=== PATIENT | male | born 1975 | race Caucasian/White ===

== ENCOUNTER 2019-05-04 17:51 | Emergency (ER) | payer BC, SELFPAY ==
[2019-05-04 17:55] VITALS: BP 121/84; PULSE 98; RESP 18; TEMP 36.6; O2SAT 98; BMI 33.3
--- NOTE | 2019-05-04 17:58 | ED_ITS ---
Entered by Jessica Hare, acting as scribe for Juan Amaral DO HPI - Extremity Injury (Upper) General: Chief Complaint: Extremity Injury, Upper Stated Complaint: RIGHT HAND PAIN Time Seen by Provider: 05/04/19 17:57 Source: patient Mode of arrival: ambulatory Limitations: no limitations History of Present Illness: HPI narrative: 43 yo Male presents to ED with complaint of right hand pain. Pt states that he got upset and punched a wall. Pt reported to triage nurse that he got into an argument with his mother and punched a wall. complaint: injury to: right and hand Onset (ago): hour(s) Other injuries: none Handedness: right Place: home Severity scale (1-10): 8 Relieving factors: none Exacerbating factors: movement of extremity Context: direct blow Associated symptoms: Denies neck pain or weakness in extremities Review of Systems Const: Denies: fever, chills, body aches, fatigue, malaise or night sweats Eyes: Denies: change in vision or blurry vision ENMT: Denies: throat pain, oral sores/lesions, dental pain, nasal discharge or nasal congestion Card: Denies: chest pain, palpitations, irregular heart rhythm, edema, syncope, shortness of breath on exertion, shortness of breath when lying down or leg pain with exertion Resp: Denies: shortness of breath, productive cough, non-productive cough or wheezing GI: Denies: abdominal pain, nausea, vomiting, vomiting blood, coffee grounds in vomit, difficulty swallowing, heartburn/indigestion, diarrhea, constipation, cramping, blood in stool or black tarry stool : Denies: flank pain, difficulty urinating, painful urination, urinary frequency, urinary urgency, urinary incontinence or blood in urine Musc: Reports: extremity pain (right hand); Denies: neck pain, back pain, extremity swelling, joint pain or joint swelling Skin/Breast: Denies: rash, itching or redness Neuro: Denies: headache, numbness in extremities, weakness in extremities, changes in sensation, lack of coordination, difficulty walking, frequent falls, dizziness, vertigo or confusion Psych: Denies: anxiety, depression, loss of interest, visual hallucinations, auditory hallucinations, suicidal ideation or homicidal ideation Endo: Denies: excessive urination, excessive thirst, tired all the time or cold intolerance Kye/Lymph: Denies: easy bruising, easy bleeding, petechiae, enlarged lymph nodes or tender lymph nodes PFSH ED PFSH: Social History Alcohol intake: current Alcohol intake frequency: holidays/special occasions only Physical Exam Const: COMMON NORMALS: average body habitus, oriented x3 and alert GENERAL APPEARANCE: cooperative, comfortable, well kempt and well developed NUTRITIONAL APPEARANCE: obese ORIENTATION/CONSCIOUSNESS: Yes awake, Yes oriented to person and Yes oriented to place Eye: COMMON NORMALS: PERRL, EOMs intact bilaterally, conjunctivae normal and no scleral icterus CONJUNCTIVA: Yes conjunctivae normal PUPIL: Yes PERRL Lymph: LYMPHATIC: no lymphadenopathy noted Resp: COMMON NORMALS: normal respiratory effort, no retractions, no use of accessory muscles and clear to auscultation bilaterally AUSCULTATION: clear to auscultation bilaterally Cardio: COMMON NORMALS: regular rate and regular rhythm RATE: regular rate RHYTHM: regular rhythm HEART SOUNDS: no murmurs GI: COMMON NORMALS: normal to inspection, nondistended, normoactive bowel sounds, soft to palpation and no hepatosplenomegaly PALPATION: Yes soft and Yes no hepatosplenomegaly Extremity: COMMON NORMALS: no clubbing, cyanosis or edema, no calf tenderness and no pedal edema OTHER: Patient placed in an ulnar gutter splint extending to include third fourth and fifth fingers pain medication given follow-up with Ortho Neuro: COMMON NORMALS: oriented x3 SENSORIUM/ORIENTATION: Yes alert, Yes oriented to person and Yes oriented to place Psych: APPEARANCE: Yes well kempt Skin: COMMON NORMALS: no rashes or lesions noted and skin turgor normal GENERAL SKIN EXAM: no rashes or lesions noted and turgor normal Course Vital Signs: Vital signs: Vital Signs Temperature 97.8 F 05/04/19 17:55 Pulse Rate 86 05/04/19 20:43 Respiratory Rate 14 05/04/19 20:43 Blood Pressure 121/74 05/04/19 20:43 Pulse Oximetry 99 05/04/19 20:43 Discharge Plan Discharge Patient Disposition: Home, Self-Care Clinical Impression: Boxer's metacarpal fracture, neck, closed Condition: Stable Prescriptions: New hydrocodone-acetaminophen 5-325 mg tablet 1 tab PO Q6H PRN (Reason: pain) Qty: 20 RF: 0 No Action (DME) Fast Form cock up splint Qty: 1 RF: 0 lisinopril 10 mg tablet 10 mg PO BID Qty: 60 RF: 0 atorvastatin 20 mg tablet 20 mg PO DAILY Qty: 30 RF: 0 Discharge Orders: Discharge Order (Routine); Ordered 05/04/19 Ordered By: Juan Amaral Referrals: Lawrence Allen DO [Physician] - Discharge Diet: Usual diet Discharge Activity: Limit activity as instructed Activity Restrictions/Additional Instructions: Case management will call with an appointment for orthopedics. Leave the splint in place until you see them. 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
--- NOTE | 2019-05-04 18:45 | XRR_ITS ---
PROCEDURE INFORMATION: Exam: XR Right Hand Exam date and time: 05/04/2019 6:59 PM Age: 43 years old Clinical indication: Pain and injury or trauma; Injury history: Punched wall; Initial encounter; Blunt trauma (contusions or hematomas; Hand; Right; Injury date: 05/04/19; Additional info: Hand pain/trauma TECHNIQUE: Imaging protocol: XR Right hand. Views: Frontal, lateral, and oblique views. COMPARISON: MRI Hand w/o RIGHT* [id number] 03/12/2017 6:53 AM FINDINGS: Bones/joints: Normal. Soft tissues: Normal. XR/XR hand RT min 3V* [id number] IMPRESSION: No acute findings.
[2019-05-04] MEDS: HYDROcodone-acetaminophen 5-325 mg Tablet 1 TAB PO (20:27)
[2019-05-04 20:43] VITALS: BP 121/74; PULSE 86; RESP 14; O2SAT 99
--- NOTE | 2019-05-05 14:53 | DCPLANNER ---
healthcare advisory services manager had message to schedule a follow up appointment for patient with ortho. healthcare advisory services manager called ortho, spoke with Pat, gave clinic patients information. healthcare advisory services manager was told that patients information would be printed and reviewed. Clinic will call behavioral health case manager and patient with appointment information.
--- NOTE | 2019-05-09 08:43 | DCPLANNER ---
Patient had an appointment scheduled for with ortho, patient did attend the appointment.
== END 2019-05-04 20:46 | disposition home or self-care (01) ==
PROVIDERS: Emergency Provider Family Medicine; Family Provider Family Medicine; PCP Family Medicine
DX: S62.336A Displaced fracture of neck of fifth metacarpal bone, right hand, initial encounter for closed fracture (principal); E66.9 Obesity, unspecified; Z68.33 Body mass index [BMI] 33.0-33.9, adult; W22.01XA Walked into wall, initial encounter; Y92.009 Unspecified place in unspecified non-institutional (private) residence as the place of occurrence of the external cause
CPT/HCPCS: 12345; 29125; 73130; 99281; 99283

== ENCOUNTER 2019-05-05 16:22 | Outpatient (CLI) | payer BC, SELFPAY | END 2019-05-05 16:23 | disposition home or self-care (01) | LOC: SPT 16:23 | PROVIDERS: Family Provider Family Medicine; PCP Family Medicine; Visit Provider Specialist | DX: Z46.89 Encounter for fitting and adjustment of other specified devices (principal); S62.336D Displaced fracture of neck of fifth metacarpal bone, right hand, subsequent encounter for fracture with routine healing; X58.XXXD Exposure to other specified factors, subsequent encounter | CPT/HCPCS: L3984 ==

== ENCOUNTER → 2019-05-08 09:31 | Outpatient (BNVA) | payer BC, SELFPAY | PROVIDERS: Family Provider Family Medicine; PCP Family Medicine; Visit Provider Family Medicine | DX: R68.89 Other general symptoms and signs (principal); J06.9 Acute upper respiratory infection, unspecified | CPT/HCPCS: 87400 ==

== ENCOUNTER → 2019-05-19 08:51 | Outpatient (BNVA) | payer BC, SELFPAY | PROVIDERS: Family Provider Family Medicine; PCP Family Medicine; Visit Provider Specialist | DX: S62.306A Unspecified fracture of fifth metacarpal bone, right hand, initial encounter for closed fracture (principal); X58.XXXA Exposure to other specified factors, initial encounter | CPT/HCPCS: 73130 ==

== ENCOUNTER → 2019-06-02 11:47 | Outpatient (BNVA) | payer BC, SELFPAY | PROVIDERS: Family Provider Family Medicine; PCP Family Medicine; Visit Provider Specialist | DX: S62.306A Unspecified fracture of fifth metacarpal bone, right hand, initial encounter for closed fracture (principal); X58.XXXA Exposure to other specified factors, initial encounter | CPT/HCPCS: 73130 ==

== ENCOUNTER → 2019-06-19 08:20 | Outpatient (BNVA) | payer BC, SELFPAY | PROVIDERS: Family Provider Family Medicine; PCP Family Medicine; Visit Provider Specialist | DX: S62.306A Unspecified fracture of fifth metacarpal bone, right hand, initial encounter for closed fracture (principal); X58.XXXA Exposure to other specified factors, initial encounter | CPT/HCPCS: 73130 ==

== ENCOUNTER → 2019-06-27 14:03 | Outpatient (BNVA) | payer BC, SELFPAY | PROVIDERS: Family Provider Family Medicine; PCP Family Medicine; Visit Provider Family Medicine | DX: I10 Essential (primary) hypertension (principal); E78.5 Hyperlipidemia, unspecified; G47.10 Hypersomnia, unspecified | CPT/HCPCS: 80053; 80061; 82044; 84443; 85025 ==

== ENCOUNTER → 2019-07-18 09:20 | Outpatient (BNVA) | payer BC, SELFPAY | PROVIDERS: Family Provider Family Medicine; PCP Family Medicine; Visit Provider Family Medicine | DX: R68.82 Decreased libido (principal); I10 Essential (primary) hypertension | CPT/HCPCS: 80048; 84403 ==

== ENCOUNTER → 2019-08-14 16:13 | Outpatient (BNVA) | payer BC, SELFPAY | PROVIDERS: Family Provider Family Medicine; PCP Family Medicine; Visit Provider Family Medicine | DX: R60.9 Edema, unspecified (principal); I10 Essential (primary) hypertension; Z79.899 Other long term (current) drug therapy | CPT/HCPCS: 80048 ==

== ENCOUNTER 2019-09-17 12:46 | Outpatient (CLI) | payer BC, SELFPAY ==
--- NOTE | 2019-09-17 12:45 | USCV_ITS ---
Sravan Gipson Age: 44 Gender: M : 1975 Exam Date: 09/17/2019 12:43 Ordering Phys: Maris Cavazos DO Technologist: Annetta Huynh Exam Location: [facility] [place] Indication: OLGUIN, LEG EDEMA BP: / HR: 91 Rhythm: Sinus Technical Quality: Adequate MEASUREMENTS (Male / Female) Normal Values 2D ECHO LV Diastolic Diameter PLAX 4.4 cm 4.2 - 5.9 / 3.9 - 5.3 cm LV Systolic Diameter PLAX 3.0 cm LV Chamber Size 4.0 cm IVS Diastolic Thickness 1.6 cm 0.6 - 1.0 / 0.6 - 0.9 cm IVS Systolic Thickness 2.1 cm LVPW Diastolic Thickness 2.5 cm 0.6 - 1.0 / 0.6 - 0.9 cm LVPW Systolic Thickness 2.6 cm RV Chamber Size 3.7 cm LVOT Diameter 2.0 cm LV Ejection Fraction 2D Teich 59.1 % LV Ejection Fraction MOD 2C 55.9 % LV Ejection Fraction 2C AL 56.1 % LA Diameter 4.1 cm LA Width 3.3 cm LA Height 4.1 cm RA Width 3.2 cm RA Height 3.0 cm Aorta at Sinotubular Diameter 2.4 cm M-MODE LV Diastolic Diameter MM 5.8 cm 4.2 - 5.9 / 3.9 - 5.3 cm LV Systolic Diameter MM 4.2 cm LV Ejection Fraction MM Teich 51.9 % IVS Diastolic Thickness MM 1.0 cm 0.6 - 1.0 / 0.6 - 0.9 cm IVS Systolic Thickness MM 1.1 cm LVPW Diastolic Thickness MM 0.9 cm 0.6 - 1.0 / 0.6 - 0.9 cm LVPW Systolic Thickness MM 1.2 cm Aortic Annulus Diameter 3.6 cm LA Ao Ratio MM 1.1 MV E Point Septal Separation 0.8 cm DOPPLER AV Peak Velocity 141.0 cm/s LVOT Peak Velocity 101.0 cm/s AV Area Cont Eq vti 2.6 cm squared AV Area Cont Eq pk 2.4 cm squared MV Area PHT 3.7 cm squared Mitral E to A Ratio 0.9 MV E' Velocity 10.0 cm/s Mitral E to MV E' Ratio 6.8 Mitral E to LV E' Lateral Ratio 7.0 Mitral E to LV E' Septal Ratio 6.6 TR Peak Velocity 186.0 cm/s TR Peak Gradient 13.8 mmHg TV Peak E Velocity 52.0 cm/s Right Atrial Pressure 3.0 mmHg Pulmonary Artery Systolic Pressu 16.8 mmHg PV Peak Velocity 78.0 cm/s RV Acceleration Time 0.2 s RV Ejection Time 0.4 s RV AcT/ET 0.4 FINDINGS Left Ventricle Normal left ventricular size and systolic function, EF 59 %. No regional wall motion abnormalities. Grade I/IV diastolic dysfunction (abnormal relaxation filling pattern), normal to mildly elevated filling pressures. Right Ventricle Normal right ventricular size and systolic function. Right Atrium The right atrium is normal in size. Left Atrium The left atrium is normal in size. Mitral Valve No gross abnormalities noted Aortic Valve No gross abnormalities noted Tricuspid Valve No gross abnormalities noted Pulmonic Valve Pulmonic valve not well visualized. Pericardium No pericardial effusion. Aorta Normal ascending aorta dimension. CONCLUSIONS Normal left ventricular size and systolic function, EF 59 %. No regional wall motion abnormalities. Grade I/IV diastolic dysfunction (abnormal relaxation filling pattern), normal to mildly elevated filling pressures. No significant stenotic or regurgitant lesions Normal cardiac chamber sizes There is no pericardial effusion. There are no intracardiac masses. No previous study is available for comparison. Dr Bonny Ding MD FAC (Electronically Signed) Final Date: 17 September 2019 18:03 S
== END 2019-09-17 12:47 | disposition home or self-care (01) ==
LOC: RAD 12:48
PROVIDERS: PCP Family Medicine; Visit Provider Family Medicine
DX: R06.00 Dyspnea, unspecified (principal); R60.0 Localized edema; I51.81 Takotsubo syndrome
CPT/HCPCS: 93306

== ENCOUNTER 2019-10-02 08:49 | Outpatient (CLI) | payer BC, SELFPAY ==
[2019-10-02 09:05] VITALS: BMI 38.0
--- NOTE | 2019-10-02 09:06 | NMCV_ITS ---
NM [place] perf SPECT r/s* [id number] Sravan Gipson Age: 44 Gender: M : 1975 Exam Date: 10/02/2019 09:57 Ordering Phys: Maris Cavazos DO Technologist: DIEGO Pedraza Exam Location: [facility] Indications: DYSPNEA ON EXERTION; BENIGN ESSENTIAL HYPERTENSION STRESS TEST Please see separate stress test report in [facility] for full findings IMAGE PROTOCOL Rest/Stress 1 Exercise Day Radiopharmaceutical Dose (mCi) Administration Site Administered by Rest: Tc-99m 11.0 IV DIEGO Pedraza Sestamibi Stress:Tc-99m 32.7 IV DIEGO Caruso Sestamibi Rest: 02-Oct-2019 60 Discovery 630 Stress: 02-Oct-2019 30 Discovery 630 Radiopharmaceutical was injected at 85 % maximum heart rate. Images obtained in supine and prone position. SPECT RESULTS Technical Quality: Excellent Raw Data Analysis: Normal Image Corrections: No attenuation or motion correction applied Summed Stress Score: 1 Summed Rest Score: 8 Summed Difference Score: 0 PERFUSION FINDINGS Patchy areas of decreased tracer uptake were noted in the anterior wall and inferior wall regions. No significant reversibility was noted in these regions FUNCTIONAL RESULTS (calculated via Gated SPECT) Stress Image LV EF (%): 70 Stress EDV (mL):102 TID: 0.76 Stress ESV (mL):31 FUNCTIONAL FINDINGS: Segmental wall motion analysis revealing no gross wall motion normalities IMPRESSIONS 1. Myocardial perfusion imaging revealing patchy areas of persistent decreased tracer uptake in the anterior wall and inferior wall regions, most likely represent attenuation artifacts. 2. Normal LV ejection fraction of 70%. 3. LV wall motion analysis revealing no gross wall motion normalities. 4. Normal LV volume. No significant coronary ischemia, based on the above findings Dr Bonny Ding MD FACC (Electronically Signed) Final Date: 02 October 2019 12:45 S
--- NOTE | 2019-10-02 11:00 | ECG_ITS ---
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 Interpretive Statements NAME OF STUDY: EXERCISE SESTAMIBI STRESS TEST EXERCISE DATA: The patient was exercised by William protocol. Baseline heart rate was 81 beats per minute. Baseline blood pressure was 109/83 millimeters of mercury. Target heart rate was 176 beats per minute. Maximum heart rate achieved was 162, which was 92 % of the target heart rate. Maximum blood pressure was 160/85 millimeters of mercury. Total exercise time was 7 minutes 31 seconds. Maximum METs achieved was 10.2, maximum VO2 was 35.7. The reason for ending the test was maximum effort achieved. The patient complained of during the stress test, which then resolved at the end of the test. ELECTROCARDIOGRAM: BASELINE: Showed sinus rhythm, normal axis, no significant ST-T changes at the baseline noted. EXERCISE: At the peak exercise level, no significant ST-T changes suggestive of ischemia noted. RECOVERY: During the recovery period, heart rate dropped appropriately. No significant ST-T changes in the recovery suggestive of ischemia noted. CONCLUSION: 1. Exercise capacity good. 2. Heart rate response was appropriate. 3. Blood pressure response was hypertensive. 4. Symptoms not suggestive of ischemia. 5. Electrocardiogram portion of the stress test was not suggestive of ischemia. Electronically Signed On 10-15-2019 19:06:03 CDT by Karina Cristina M.D. [id number]
[2019-10-02 11:23] VITALS: BP 116/84; PULSE 98
== END 2019-10-02 08:50 | disposition home or self-care (01) ==
LOC: CDL 08:52
PROVIDERS: PCP Family Medicine; Visit Provider Family Medicine
DX: R06.00 Dyspnea, unspecified (principal); I10 Essential (primary) hypertension
CPT/HCPCS: 78452; 93017; A9500

== ENCOUNTER 2019-10-02 13:00 | Outpatient (CLI) | payer BC, SELFPAY | END 2019-10-02 13:01 | disposition home or self-care (01) | LOC: SLEEP 10-03 09:54 | PROVIDERS: PCP Family Medicine; Visit Provider Family Medicine | DX: G47.10 Hypersomnia, unspecified (principal) | CPT/HCPCS: G0399 ==

== ENCOUNTER 2019-10-28 10:33 | Observation (INO) | payer BC, SELFPAY ==
[2019-10-28] VITALS (14 sets, daily range): BP systolic 103–131; BP diastolic 58–93; PULSE 62–89; RESP 14–24; TEMP 36.4–37.1; O2SAT 93–98; BMI 38.0
--- NOTE | 2019-10-28 10:35 | ECG_ITS ---
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 Measurements Intervals [place] Rate: 89 P: 35 NM: 187 QRS: 78 QRSD: 101 T: 67 QT: 344 QTc: 419 Interpretive Statements SINUS RHYTHM Compared to ECG 09/08/2018 16:03:40 No significant changes Electronically Signed On 10-28-2019 14:26:00 CDT by Mily Gonzalez M.D. [id number] f
--- NOTE | 2019-10-28 10:35 | XR_ITS ---
WS: [id number] EXAM: AP CHEST: PORTABLE UPRIGHT DATE OF EXAM: 10/28/2019, 1053 hours COMPARISON: Chest x-ray from 09/08/2018 HISTORY: Patient is 44 years old with atraumatic chest pain rated 6 out of 10. FINDINGS: The cardiac silhouette is normal in size. The mediastinal contours are normal. The pulmonary vas cularity is normal. The lungs are clear of infiltrate. There is no effusion or pneumothorax. No ac brett bony abnormality is seen. XR/XR chest 1V portable [id number] IMPRESSION: No acute pulmonary disease.
--- NOTE | 2019-10-28 10:57 | CT_ITS ---
WS: [id number] CT CHEST ANGIOGRAPHY WITH REFORMATS HISTORY: chest pain/dyspnea TECHNIQUE: Contiguous axial images are obtained through the chest during arterial injection of intrav enous contrast. Images are reconstructed to evaluate the pulmonary arteries. MIP imaging also reviewe d. All CT scans at [facility] use at least one of these dose optimization techniques: aut omated exposure control; mA and/or kV adjustment per patient size (includes targeted exams where dose is matched to clinical indication); or iterative reconstruction. CONTRAST: Omnipaque 350; 95 mL IV. DLP: 945.61 mGy.cm COMPARISON: 09/08/2018 Adequate opacification of the pulmonary arteries. Centrally there is no pulmonary embolism. Opacifica tion becomes limited beyond the subsegmental branches. Normal size pulmonary artery. Normal aorta. Mi ld enlargement of the LEFT heart chambers. No pericardial or pleural effusion. Poor inspiration. No pneumonia. Subcentimeter mediastinal and hilar lymph nodes. Prior cholecystectomy. Nonobstructing 3 mm calcification LEFT renal pelvis. No osteoblastic or osteolytic bone disease. CT/CT angio chest PE protcl [id number] IMPRESSION: 1. No pulmonary embolism. 2. Mild LEFT heart enlargement. 3. No pneumonia. 4. Prior cholecystectomy. 5. Subcentimeter mediastinal and hilar lymph nodes.
[2019-10-28] MEDS: nitroglycerin 1 gm/inch oint Pkt 1 INCH TOPICAL (11:00)
[2019-10-28 11:09] LABS: INR 0.82 (0.8-1.2)
[2019-10-28 11:11] LABS: Partial Thromboplastin Time 20.7 SECONDS (23.9-36.7)
[2019-10-28 11:19] LABS: Alanine Aminotransferase 22 U/L (0-41); Albumin Level 3.9 g/dL (3.5-5.2); Alkaline Phosphatase 72 IU/L (40-130); Anion Gap 14.2 (5-19); Aspartate Amino Transferase 22 U/L (0-40); Blood Urea Nitrogen 9 mg/dL (6-20); Calcium 8.7 mg/dL (8.5-10.5); Carbon Dioxide 21 mmol/L (22-29); Chloride 102 mmol/L (98-107); Creatine Phosphokinase 159 U/L (39-308); Glomerular Filtration Rate 72.7 mL/min (90-130); Glucose 110 mg/dL (65-115); Osmolality Calculated 273 mOsm/kg (285-295); Potassium 4.2 mmol/L (3.5-5.1); Sodium 133 mmol/L (136-145); Total Bilirubin 0.4 mg/dL (0.15-1.2); Total Protein 6.9 g/dL (6.6-8.7); Troponin(5th) Baseline 7 ng/L (0-15)
[2019-10-28] MEDS: aspirin 81 mg Chew Tablet 324 MG PO (11:21)
[2019-10-28 11:47] LABS: Basophils # 0.1 10^3/uL (0.0-0.1); Basophils % 0.6 %; Eosinophils # 0.4 10^3/uL (0.0-0.8); Eosinophils % 3.8 %; Hematocrit 54.3 % (42.0-52.0); Hemoglobin 17.7 g/dL (11.7-16.6); Lymphocytes # 3.6 10^3/uL (0.8-4.8); Lymphocytes % 32.9 %; Mean Corpuscular HGB Conc 32.6 g/dL (30.0-36.0); Mean Corpuscular Hemoglobin 28.2 pg (28.0-34.0); Mean Corpuscular Volume 86.6 fL (80-94); Mean Platelet Volume 9.6 fL (7.4-10.4); Monocytes # 0.9 10^3/uL (0.2-0.9); Monocytes % 8.3 %; Neutrophils % 53.7 %; Nucleated Red Blood Cells % 0 %; Platelet Count 244 10^3/cmm (130-400); Red Blood Count 6.27 10^6/uL (4.1-5.3); Red Cell Distribution Width 12.9 % (12.1-15.1); White Blood Count 10.8 10^3/uL (4.0-10.0)
[2019-10-28] MEDS: iohexol 350 mg/mL 100 mL Btl IV (12:14)
--- NOTE | 2019-10-28 12:35 | ECG_ITS ---
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 Measurements Intervals [place] Rate: 70 P: 37 SC: 192 QRS: 56 QRSD: 97 T: 50 QT: 373 QTc: 402 Interpretive Statements SINUS RHYTHM Compared to ECG 10/28/2019 10:43:25 No significant changes Electronically Signed On 10-28-2019 14:56:45 CDT by Mily Gonzalez M.D. [id number]
--- NOTE | 2019-10-28 12:49 | W.ED.CHESTPA ---
HPI - Chest Pain General: Chief Complaint: Chest Pain Stated Complaint: CP Time Seen by Provider: 10/28/19 10:35 History of Present Illness: HPI narrative: 44-year-old male presents with severe chest pain that began at 2 PM yesterday he has had worsening pain with cough and deep inspiration making it worse he has been short of breath he has sudden onset yesterday around 2 PM he has had some leg edema as well. He is not previously had any history of DVTs or PEs. He had recently had a stress test which was negative. MD complaint: chest pain Onset (ago): day(s) (1) Timing of current episode: constant Prior episodes: No Onset: during rest Pain location: substernal Severity: severe Quality: tightness and sharp Relieving factors: nothing Exacerbating factors: nothing Associated symptoms: Reports diaphoresis, dyspnea, leg edema and other; Deny abdominal pain, fever(s), nausea, palpitations, sense of impending doom, syncope or vomiting Treatment prior to arrival: none Review of Systems Const: Reports: diaphoresis; Denies: fever(s) ENMT: Denies: throat pain, ear or mastoid pain, nasal discharge or nasal congestion Card: Denies: palpitations or syncope Resp: Reports: dyspnea GI: Denies: abdominal pain, nausea or vomiting : Denies: flank pain, dysuria, urinary frequency or urinary urgency Skin/Breast: Denies: rash or pruritus PFSH ED PFSH: Medical History Benign essential HTN Dyslipidemia Hyperlipidemia Family History Other CAD (coronary artery disease) Diabetes Social History Smoking and tobacco status: current every day smoker smokeless tobacco Smokeless tobacco user: chewing tobacco Alcohol intake: current Alcohol intake frequency: holidays/special occasions only Physical Exam Const: COMMON NORMALS: no acute distress GENERAL APPEARANCE: cooperative and comfortable ORIENTATION/CONSCIOUSNESS: Yes awake, Yes oriented to person, Yes oriented to place and Yes oriented to time HENMT: COMMON NORMALS: normocephalic, atraumatic and hearing grossly normal bilaterally HEAD & SCALP: normocephalic and atraumatic Eye: COMMON NORMALS: Equal, round and reactive pupils present, EOMs intact bilaterally, conjunctivae normal and no scleral icterus CONJUNCTIVA: Yes conjunctivae normal PUPIL: Yes Equal, round and reactive pupils present Neck/C-Spine: COMMON NORMALS: full ROM, no lymphadenopathy, supple and no JVD Lymph: LYMPHATIC: no lymphadenopathy noted and no lymphedema noted Resp: COMMON NORMALS: normal respiratory effort, No retractions, No use of accessory muscles and clear to auscultation bilaterally AUSCULTATION: clear to auscultation bilaterally Cardio: COMMON NORMALS: no JVD, regular rate, regular rhythm and No murmurs present (Cardio) RATE: regular rate RHYTHM: regular rhythm GI: COMMON NORMALS: Soft to palpation and No hepatosplenomegaly present AUSCULTATION: Yes normoactive bowel sounds PALPATION: Yes Soft to palpation, No Tenderness to palpation present (GI), No Guarding due to palpation present (GI) and Yes No hepatosplenomegaly present Extremity: COMMON NORMALS: normal to inspection, capillary refill normal, no clubbing, cyanosis or edema, no calf tenderness and no pedal edema Neuro: SENSORIUM/ORIENTATION: Yes oriented to person, Yes oriented to place and Yes oriented to time Skin: COMMON NORMALS: no rashes or lesions noted GENERAL SKIN EXAM: no rashes or lesions noted Course Vital Signs: Vital signs: Vital Signs Temperature 97.5 F L 10/29/19 03:48 Pulse Rate 84 10/29/19 03:48 Respiratory Rate 21 H 10/29/19 03:48 Blood Pressure 118/69 10/29/19 03:48 Pulse Oximetry 94 10/29/19 03:48 MDM - Chest Pain MDM Narrative: Medical decision making narrative: Will admit to observation to complete rule out. 's Rafiq asked that we complete the rule out as a observation he may then require a cardiology consultation does appear some of this may be more pleuritic. Discussed with the patient, also discussed Dr. Singh he will admit the patient. Lab Data: Labs: Lab Results 10/28/19 10/28/19 10/28/19 Range/Units 10:52 10:52 10:52 WBC Cancelled Corrected WBC Cancelled RBC Cancelled Hgb Cancelled Hct Cancelled MCV Cancelled MCH Cancelled MCHC Cancelled RDW Cancelled Plt Count Cancelled MPV Cancelled Gran % Cancelled Neut % (Auto) Cancelled Lymph % (Auto) Cancelled [place] % (Auto) Cancelled Eos % (Auto) Cancelled Baso % (Auto) Cancelled Neut # (Auto) Cancelled Lymph # (Auto) Cancelled [place] # (Auto) Cancelled Eos # (Auto) Cancelled Baso # (Auto) Cancelled Absolute Gran (aut o) Cancelled Nucleated RBC % (a uto) Cancelled Nucleated RBCs # Cancelled ESR (0-10) mm/hr PT 11.60 L (12.1-14.9) SECO NDS INR 0.82 (0.8-1.2) APTT 20.7 L (23.9-36.7) SECO NDS Sodium 133 L (136-145) mmol/L Potassium 4.2 (3.5-5.1) mmol/L Chloride 102 (98-107) mmol/L Carbon Dioxide 21 L (22-29) mmol/L Anion Gap 14.2 (5-19) BUN 9 (6-20) mg/dL Creatinine 1.1 (0.7-1.2) mg/dL GFR Calculation 72.7 L (90-130) mL/min Glucose 110 (65-115) mg/dL Calculated Osmolal ity 273 L (285-295) mOsm/k g Calcium 8.7 (8.5-10.5) mg/dL Total Bilirubin 0.4 (0.15-1.2) mg/dL AST 22 (0-40) U/L ALT 22 (0-41) U/L Alkaline Phosphata se 72 (40-130) IU/L Creatine Kinase 159 (39-308) U/L Troponin T Baselin e (0-15) ng/L Troponin T 120 Min [place] (0-15) ng/L Delta Troponin T (0-10) ABS# C-Reactive Protein (0.0-4.9) mg/L C-React Prot High Sens (0.0-0.3) mg/dL NT-Pro-B Natriuret Pep (0-125) pg/mL Total Protein 6.9 (6.6-8.7) g/dL Albumin 3.9 (3.5-5.2) g/dL Globulin 3.0 (1.3-4.6) g/dL 10/28/19 10/28/19 10/28/19 Range/Units 10:52 10:52 11:42 WBC 10.8 H Corrected WBC RBC 6.27 H Hgb 17.7 H Hct 54.3 H MCV 86.6 MCH 28.2 MCHC 32.6 RDW 12.9 Plt Count 244 MPV 9.6 Gran % Neut % (Auto) 53.7 Lymph % (Auto) 32.9 [place] % (Auto) 8.3 Eos % (Auto) 3.8 Baso % (Auto) 0.6 Neut # (Auto) 5.80 Lymph # (Auto) 3.6 [place] # (Auto) 0.9 Eos # (Auto) 0.4 Baso # (Auto) 0.1 Absolute Gran (aut o) Nucleated RBC % (a uto) 0 Nucleated RBCs # 0.0 ESR (0-10) mm/hr PT (12.1-14.9) SECO NDS INR (0.8-1.2) APTT (23.9-36.7) SECO NDS Sodium (136-145) mmol/L Potassium (3.5-5.1) mmol/L Chloride (98-107) mmol/L Carbon Dioxide (22-29) mmol/L Anion Gap (5-19) BUN (6-20) mg/dL Creatinine (0.7-1.2) mg/dL GFR Calculation (90-130) mL/min Glucose (65-115) mg/dL Calculated Osmolal ity (285-295) mOsm/k g Calcium (8.5-10.5) mg/dL Total Bilirubin (0.15-1.2) mg/dL AST (0-40) U/L ALT (0-41) U/L Alkaline Phosphata se (40-130) IU/L Creatine Kinase (39-308) U/L Troponin T Baselin e 7 (0-15) ng/L Troponin T 120 Min [place] (0-15) ng/L Delta Troponin T (0-10) ABS# C-Reactive Protein 4.7 (0.0-4.9) mg/L C-React Prot High Sens 0.410 H (0.0-0.3) mg/dL NT-Pro-B Natriuret Pep 10 (0-125) pg/mL Total Protein (6.6-8.7) g/dL Albumin (3.5-5.2) g/dL Globulin (1.3-4.6) g/dL 10/28/19 10/28/19 Range/Units 11:42 12:38 WBC Corrected WBC RBC Hgb Hct MCV MCH MCHC RDW Plt Count MPV Gran % Neut % (Auto) Lymph % (Auto) [place] % (Auto) Eos % (Auto) Baso % (Auto) Neut # (Auto) Lymph # (Auto) [place] # (Auto) Eos # (Auto) Baso # (Auto) Absolute Gran (aut o) Nucleated RBC % (a uto) Nucleated RBCs # ESR 5 (0-10) mm/hr PT (12.1-14.9) SECO NDS INR (0.8-1.2) APTT (23.9-36.7) SECO NDS Sodium (136-145) mmol/L Potassium (3.5-5.1) mmol/L Chloride (98-107) mmol/L Carbon Dioxide (22-29) mmol/L Anion Gap (5-19) BUN (6-20) mg/dL Creatinine (0.7-1.2) mg/dL GFR Calculation (90-130) mL/min Glucose (65-115) mg/dL Calculated Osmolal ity (285-295) mOsm/k g Calcium (8.5-10.5) mg/dL Total Bilirubin (0.15-1.2) mg/dL AST (0-40) U/L ALT (0-41) U/L Alkaline Phosphata se (40-130) IU/L Creatine Kinase (39-308) U/L Troponin T Baselin e (0-15) ng/L Troponin T 120 Min [place] 7.52 (0-15) ng/L Delta Troponin T 0.52 (0-10) ABS# C-Reactive Protein (0.0-4.9) mg/L C-React Prot High Sens (0.0-0.3) mg/dL NT-Pro-B Natriuret Pep (0-125) pg/mL Total Protein (6.6-8.7) g/dL Albumin (3.5-5.2) g/dL Globulin (1.3-4.6) g/dL Discharge Plan Discharge Patient Disposition: Admitted As Inpatient Admit Provider: Jeremy Singh Clinical Impression: Atypical chest pain, Hypertension, Sleep apnea, GERD (gastroesophageal reflux disease) Condition: Stable Interventions: ED Discharge Assessment Last Done: 10/28/19 13:58 ED Charges Last Done: 10/28/19 13:58 Discharge Date/Time: 10/28/19 14:02 Coding Level of Care Code ED Office Machine Servicer Apprentice for Chg Fwd Exam Comprehensive
[2019-10-28 13:05] LABS: Troponin 5 2HR 7.52 ng/L (0-15); Troponin 5 2HR Delta 0.52 ABS# (0-10)
[2019-10-28] MEDS: morphine 4 mg/mL SDV 1 mL IVP (13:24)
--- NOTE | 2019-10-28 14:11 | P.HP_ITS ---
Providers/Chief Complaint Admitting Physician: Jeremy Singh MD Primary Care Provider: Maris Cavazos DO Chief Complaint: CP History of Present Illness 44 yo man with PMHx of hypertension, leg swelling, tobacco chewer (20 years), quit smoking cigarettes; he presented for evaluation of chest pain. This episode of chest pain started yesterday afternoon around 2:30-3 pm while he was watching TV. Pain described at squeezing, retrosternal in location with mild SOB. This was graded 6/10 in intensity and is constant in nature with occasional radiation to his jaw. These episodes have been happening for last 4-6 months and unrelated to exertion. He describes pleuritic component to the pain (worsening with inspiration). He tried ibuprofen that did not help . He describes his pain different than his acid reflux pain. He had an angiogram about 10-15 years ago that was within normal limits. He had home sleep study that he does not know the results of. EKG today showed sinus r hythm, right axis deviation, possible inferior infarct, age indeterminate. He has had EGD before in 11/02/2017 that showed mild gastritis. He recently had exercise sestamibi MPI that showed attenuation artifact in inferior and anterior leads. LVEF=70%. TTE with normal LV size and function. Grade 1 DD. He works for [employer] Current symptoms: Reports dyspnea and dyspnea on exertion Associated symptoms: Reports chest pain and leg edema; Denies palpitations, dizziness, pre-syncope, syncope or cough Initial EKG : No acute myocardial insult, CT angios with contrast: Done in the ER: Has no PE and no signs suggestive of pneumonia. Initial Troponins: FLat ESR,CRP awaited Review of Systems General: Reports: 10 or more systems reviewed and unremarkable except in HPI and below Const: Denies: fever(s), chills, body aches, change in appetite or diaphoresis Card: Denies: palpitations, edema, swelling of feet/ankles, dyspnea on exertion, orthopnea or leg pain with exertion Resp: Denies: dyspnea, productive cough, wheezing or pain on inspiration GI: Denies: abdominal pain, nausea, vomiting, diarrhea or constipation : Denies: flank pain or difficulty urinating Musc: Denies: back pain, extremity pain or extremity swelling Neuro: Denies: headache(s), difficulty walking or confusion Medications/Allergies Home Medications Medication Instructions Recorded Confirmed Last Taken Type atorvastatin 20 mg tablet 20 mg PO DAILY #90 tab 07/10/19 10/28/19 10/28/19 Rx testosterone cypionate 200 mg/mL 200 mg IM .every 2 weeks #0 ml 07/28/19 0 10/28/19 Unknown Rx intramuscular oil bumetanide 0.5 mg tablet 0.5 mg PO DAILY #30 tab 09/25/19 10/28/19 10/28/19 Rx Allergy Medication 1 tab PO DAILY 10/28/19 10/28/19 Unknown History acetaminophen [Tylenol Extra 1,000 mg PO PRN 10/28/19 10/28/19 Unknown History Strength] ibuprofen 400 mg PO PRN 10/28/19 10/28/19 Unknown History lisinopril 10 mg PO BEDTIME 10/28/19 10/28/19 10/27/19 History Allergies Allergy/AdvReac Type Severity Reaction Status Date / Time No Known Allergies Allergy Verified 10/28/19 11:08 PFSH Acute PFSH: Medical History Benign essential HTN Dyslipidemia Hyperlipidemia Family History Other CAD (coronary artery disease) Diabetes Social History Smoking and tobacco status: current every day smoker smokeless tobacco Smokeless tobacco user: chewing tobacco Alcohol intake: current Alcohol intake frequency: holidays/special occasions only Vitals/I&O/Wt Last Vital Signs Temp 98.8 F 10/28/19 10:35 Pulse 74 10/28/19 13:58 Resp 16 10/28/19 13:58 BP 106/70 10/28/19 13:58 Pulse Ox 95 10/28/19 13:58 Weight last 48 hrs Weight 130.635 kg Physical Exam Const: COMMON NORMALS: patient oriented x3 HENMT: COMMON NORMALS: normocephalic, atraumatic, hearing grossly normal bilaterally and external ears normal HEAD & SCALP: normocephalic and a traumatic EXTERNAL EAR: Yes external ears normal Eye: COMMON NORMALS: no scleral icterus GENERAL EYE: appearance normal, both eyes and all related structures Chest: COMMONS NORMALS: normal inspection of the chest and normal palpation of entire chest wall CHEST: Yes Symmetrical chest wall rise Resp: COMMON NORMALS: normal respiratory effort, No retractions, No use of accessory muscles and clear to auscultation bilaterally EFFORT & INSPECTION: Yes symmetric chest movement AUSCULTATION: clear to auscultation bilaterally Cardio: COMMON NORMALS: regular rate, regular rhythm, S1 normal heart sound present, S2 normal heart sound present, No gallops present (Cardio), No murmurs present (Cardio), No rub (Cardio) and Peripheral pulses 2+ throughout RATE: regular rate RHYTHM: regular rhythm HEART SOUNDS: S1 normal heart sound present and S2 normal heart sound present PERIPHERAL PULSES: Peripheral pulses 2+ throughout GI: COMMON NORMALS: Normal to inspection, nondistended, normoactive bowel sounds present, Soft to palpation, non-tender, No hepatosplenomegaly present and no masses AUSCULTATION: Yes normoactive bowel sounds PALPATION: Yes Soft to palpation and Yes No hepatosplenomegaly present RECTAL EXAM: Yes deferred Extremity: COMMON NORMALS: no clubbing, cyanosis or edema and no pedal edema Neuro: COMMON NORMALS: patient oriented x3 Data : 10/28/19 11:42 10/28/19 10:52 CT Chest: I personally reviewed and interpreted this imaging study as follows: My impression: No evidence of pulmonary embolim . No evidence of pneumonia. Radiologist's impression: 1. No pulmonary embolism. 2. Mild LEFT heart enlargement. 3. No pneumonia. 4. Prior cholecystectomy. 5. Subcentimeter mediastinal and hilar lymph nodes. EKG 1: I personally reviewed and interpreted this EKG as follows: My Interpretation: No acute myocardial insult. Machine Tool Builder Interpretation: SINUS RHYTHM Compared to ECG 10/28/2019 10:43:25 No significant changes A&P Assessment and plan (1) GERD (gastroesophageal reflux disease): pain is mainly epigastric, initial cardiac work-up has been negative. Patient has obesity, he has sleep apnea. We will start him on PPI trial 40 mg IV every 12 hours daily for 4-6 weeks. He does not comes from an H. pylori endemic area. Hence will avoid doing H. pylori stool antigen testing. Status: Acute (2) Atypical chest pain: Pain characteristic is atypical, it is nonexertional, sharp, nonradiating. Prior cardiac work-up has been negative. We will continue to monitor him on telemetry. Status: Acute (3) Hypertension: Continue lisinopril 10 mg oral daily Status: Acute (4) Sleep apnea: Patient has a prior sleep study done. Will provide him with the report of it upon discharge. He will follow with his primary care as well as in sleep clinic as an outpatient. Status: Acute (5) Dyslipidemia: Continue atorvastatin 10 mg oral daily. Status: Acute (6) Lower extremity edema: Patient is on Bumex 0.5 mg oral daily for his bilateral lower extremity at home. Currently he has minimal pitting edema . We will continue with Bumex 0.5 mg oral daily. Status: Acute Additional A&P Information Imaging study: CT angios with contrast: 1. No pulmonary embolism. 2. Mild LEFT heart enlargement. 3. No pneumonia. 4. Prior cholecystectomy. 5. Subcentimeter mediastinal and hilar lymph nodes. DVT prophylaxsis: Lovenox 40 mg sub daily GI prophylaxis: On Protonix CODE STATUS: Full code Attestations Medical Necessity Statement*: Patient will need more than 2 nights of hospital stay for chest pain evaluation and work-up. Coding Level of Care Code Acute Joggle Press Operator for Chg Fwd Exam Comprehensive Diagnoses GERD (gastroesophageal reflux disease) K21.9 Atypical chest pain R07.89 Hypertension I10 Sleep apnea G47.30 Dyslipidemia E78.5 Lower extremity edema R60.0
[2019-10-28] MEDS: enoxaparin 40 mg/0.4 mL Syringe SUBCUT (14:50)
[2019-10-28] MEDS: oxyCODONE-APAP 5-325 mg Tablet 1 TAB PO ×2 (14:50→20:24)
[2019-10-28] MEDS: pantoprazole 40 mg SDV IVP (14:50)
[2019-10-28 15:20] LABS: Erythrocyte Sedimentation Rate 5 mm/hr (0-10)
[2019-10-28 15:28] LABS: C Reactive Protein 4.7 mg/L (0.0-4.9)
[2019-10-28 15:48] LABS: NT Pro B Type Natriuretic Pept 10 pg/mL (0-125)
--- NOTE | 2019-10-28 16:35 | ECG_ITS ---
[facility] Test Date: 2019-10-28 Pat Name: Sravan Gipson Department: Room: 104 Gender: Male Disabilities Services Officer: : 1975 Requested By: Juan Rasmussen Order Number: [id number] Ayo MD: Mily Gonzalez M.D. Measurements Intervals [place] Rate: 68 P: 40 FL: 194 QRS: 78 QRSD: 111 T: 58 QT: 393 QTc: 420 Interpretive Statements SINUS RHYTHM MODERATE INTRAVENTRICULAR CONDUCTION DELAY [110+ ms QRS DURATION] Compared to ECG 10/28/2019 12:34:30 Intraventricular conduction delay now present Electronically Signed On 10-28-2019 22:29:22 CDT by Mily Gonzalez M.D. [id number]
[2019-10-28] MEDS: atorvastatin 40 mg Tablet 20 MG PO (20:21)
--- NOTE | 2019-10-28 23:02 | PC.NURSE ---
Patient resting in bed watching TV at this time. Patient did report moderate chest pain earlier in the shift and all v/s are WNL and telemtry shows NSR. Administered PRN pain medication per orders, and patient stated that the pain medication helps ease the chest pain and makes it bearable . Patient was admitted to [facility] for complaint of chest pain.
[2019-10-29] VITALS (10 sets, daily range): BP systolic 109–130; BP diastolic 60–76; PULSE 72–84; RESP 17–28; TEMP 36.4–36.7; O2SAT 93–95
--- NOTE | 2019-10-29 00:22 | PC.NURSE ---
Patient resting quietly at this time, no complaints during 0000 v/s and rounds. Patient does experience small episodes of apnea where o2 sats decrease then come right back up to WNL. Continue care.
[2019-10-29] MEDS: pantoprazole 40 mg SDV IVP (02:01)
[2019-10-29] MEDS: oxyCODONE-APAP 5-325 mg Tablet 1 TAB PO ×3 (02:01→13:24)
--- NOTE | 2019-10-29 02:31 | PC.NURSE ---
Patient awake during hourly rounding, nurse administered scheduled medication and patient reported pain and PRN pain medication given per orders for pain. Patient very pleasant and cooperative with staff. Continue care.
[2019-10-29 04:25] LABS: Basophils # 0.1 10^3/uL (0.0-0.1); Basophils % 0.5 %; Eosinophils # 0.4 10^3/uL (0.0-0.8); Hematocrit 50.1 % (42.0-52.0); Hemoglobin 16.2 g/dL (11.7-16.6); Lymphocytes # 2.8 10^3/uL (0.8-4.8); Lymphocytes % 22.2 %; Mean Corpuscular HGB Conc 32.3 g/dL (30.0-36.0); Mean Corpuscular Hemoglobin 28.3 pg (28.0-34.0); Mean Corpuscular Volume 87.6 fL (80-94); Mean Platelet Volume 9.7 fL (7.4-10.4); Monocytes # 0.9 10^3/uL (0.2-0.9); Monocytes % 6.7 %; Neutrophils # 8.52 10^3/uL (1.8-7.7); Neutrophils % 67.2 %; Nucleated Red Blood Cells % 0 %; Platelet Count 222 10^3/cmm (130-400); Red Blood Count 5.72 10^6/uL (4.1-5.3); Red Cell Distribution Width 13.1 % (12.1-15.1); White Blood Count 12.7 10^3/uL (4.0-10.0)
[2019-10-29 04:51] LABS: Magnesium 2.1 mg/dL (1.7-2.3)
[2019-10-29 04:53] LABS: Alanine Aminotransferase 53 U/L (0-41); Albumin Level 3.3 g/dL (3.5-5.2); Alkaline Phosphatase 75 IU/L (40-130); Anion Gap 14.9 (5-19); Aspartate Amino Transferase 35 U/L (0-40); Blood Urea Nitrogen 14 mg/dL (6-20); Calcium 8.6 mg/dL (8.5-10.5); Carbon Dioxide 22 mmol/L (22-29); Chloride 104 mmol/L (98-107); Globulin 2.7 g/dL (1.3-4.6); Glomerular Filtration Rate 65.8 mL/min (90-130); Glucose 112 mg/dL (65-115); Osmolality Calculated 281 mOsm/kg (285-295); Potassium 3.9 mmol/L (3.5-5.1); Sodium 137 mmol/L (136-145); Total Bilirubin 0.4 mg/dL (0.15-1.2)
--- NOTE | 2019-10-29 06:12 | PC.NURSE ---
Uneventful shift, patient resting quietly in room with lights off. Continue care.
[2019-10-29] MEDS: bumetanide 1 mg Tablet 0.5 MG PO (08:34)
[2019-10-29] MEDS: lisinopril 20 mg Tablet PO (08:34)
[2019-10-29] MEDS: aspirin 81 mg Chew Tablet PO (08:35)
--- NOTE | 2019-10-29 12:31 | P.CONIM_ITS ---
Providers/Reason For Consult Consulting Physican/Specialty*: BALA Ding MD/cardiology Reason for Consult*: Patient with chest pain Attending Physician: Stew Velasco MD Primary Care Provider: Maris Cavazos DO History of Present Illness History of Present Illness Sravan Gipson is a 44 year old male with a history of hypertension/dyslipidemia is admitted to hospital with complaints of chest pain. Cardiology consult is requested for further cardiac evaluation recommendations. According the patient, for the last 2 days, he has been constant pain in the lower sternal region. The pain gets worse with deep inspiration. The pain came on itself with no definite precipitating factors. No chest wall trauma or any type of unusual stress. The intensity of the pain is 5-6 over 10. He has no associated fever, chills or cough. Has some baseline shortness of breath with no recent worsening. No abdominal pain or dysuria. Patient has been having some atypical chest pains and shortness of breath for the last year or so. He had a myocardial perfusion imaging and echocardiogram as an outpatient which were essentially unremarkable. 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 Gonzalez yesterday in the office. Because of his persistent chest pain, he was sent to the emergency room, for further evaluation. He denies any other specific complaints. No history for any rheumatological disorders. He had a sed rate yesterday which was unremarkable. Review of Systems Narrative: CONSTITUTIONAL: No fever or chills. EYES: No blurring of vision or other visual disturbances lately. ENT: No hoarseness of voice, auditory disturbances or sore throat. CARDIOVASCULAR: As mentioned above. RESPIRATORY: No significant cough. GASTROINTESTINAL: No hematemesis or melena. GENITOURINARY: No dysuria or hematuria. INTEGUMENTARY: No skin rashes or history of skin cancer. NEURO: No transient ischemic attacks or amaurosis. PSYCHIATRIC: No history of psychosis or major depression. HEMATOLOGIC: No bleeding disorders or significant anemia. ENDOCRINE: No history of polyuria or polydipsia. MUSCULOSKELETAL: No recent joint pain or swelling. ALLERGY/IMMUNOLOGY: As mentioned above. Meds/Allergies Home Medications and Allergies Home Medications Medication Instructions Recorded Confirmed Last Taken Type atorvastatin 20 mg tablet 20 mg PO DAILY #90 tab 07/10/19 10/28/19 10/28/19 Rx testosterone cypionate 200 mg/mL 200 mg IM .every 2 weeks #0 ml 07/28/19 10/28/19 Unknown Rx intramuscular oil bumetanide 0.5 mg tablet 0.5 mg PO DAILY #30 tab 09/25/19 10/28/19 10/28/19 Rx Allergy Medication 1 tab PO DAILY 10/28/19 10/28/19 Unknown History acetaminophen [Tylenol Extra 1,000 mg PO PRN 10/28/19 10/28/19 Unknown History Strength] ibuprofen 400 mg PO PRN 10/28/19 10/28/19 Unknown History lisinopril 10 mg PO BEDTIME 10/28/19 10/28/19 10/27/19 History Allergies Allergy/AdvReac Type Severity Reaction Status Date / Time No Known Allergies Allergy Verified 10/28/19 11:08 Current Medications Current Medications Generic Name Dose Route Start Last Admin Trade Name Freq PRN Reason Stop Dose Admin Aspirin 81 mg 10/29/19 09:00 10/29/19 08:35 Aspirin Chewable PO 81 mg DAILY NORBERT Administration Atorvastatin Calcium 20 mg 10/28/19 21:00 10/28/19 20:21 Lipitor PO 20 mg BEDTIME NORBERT Administration Bumetanide 0.5 mg 10/29/19 09:00 10/29/19 08:34 Bumex PO 0.5 mg DAILY NORBERT Administration Enoxaparin Sodium 40 mg 10/28/19 14:30 10/28/19 14:50 Lovenox SUBCUT 40 mg Q24H NORBERT Administration Lisinopril 20 mg 10/29/19 09:00 10/29/19 08:34 Prinivil PO 20 mg DAILY NORBERT Administration Oxycodone/Acetaminophen 1 tab 10/28/19 13:59 10/29/19 07:33 Percocet 5-325 Mg PO 1 tab Q4H PRN Administration SEVERE PAIN Pantoprazole Sodium 40 mg 10/28/19 14:15 10/29/19 02:01 Protonix IVP 40 mg Q12H NORBERT Administration PFSH Acute PFSH: Medical History (Updated 10/29/19 @ 15:58 by Bonny Ding MD) Benign essential HTN Benign essential hypertension with target blood pressure below 140/90 Dyslipidemia Hyperlipidemia Family History Other CAD (coronary artery disease) Diabetes Social History Smoking and tobacco status: current every day smoker smokeless tobacco Smokeless tobacco user: chewing tobacco Alcohol intake: current Alcohol intake frequency: holidays/special occasions only Vitals/I&O/Wt Last Vital Signs Temp 98.1 F 10/29/19 11:08 Pulse 80 10/29/19 11:08 Resp 21 H 10/29/19 11:08 BP 128/76 10/29/19 11:08 Pulse Ox 93 10/29/19 11:08 10/28/19 10/29/19 10/29/19 22:59 06:59 14:59 Intake Total 480 / 480 120 / 600 Balance 480 / 480 120 / 600 Weight last 48 hrs Weight 288 lb Physical Exam Narrative: EXAM NARRATIVE: GENERAL: The patient is alert and oriented times three. Not in any acute distress. Moderately obese HEENT: No significant pallor, icterus or lymphadenopathy. The pupils are reactant to light. Oral cavity: There are no mucous membrane lesions. Funduscopic fundus is not visualized NECK: Trachea appears to be central. No masses noted. No JVD or thyromegaly appreciated. No carotid bruit. [] RESPIRATORY: Chest is symmetrical. No intercostals muscle retraction or any accessory muscle activation. There is no chest wall tenderness. Breath sounds are heard bilaterally. No rales or rhonchi heard. No evidence of any consolidation. BREASTS: Deferred. HEART: The PMI is in the 5th left intercostals space just inside the midclavicular line. No palpable precordial events. S1 and S2 are normal. No S3 or S4 heard. No pericardial rub or any click heard. ABDOMEN: No vessel pulsations or distention. No tenderness. No organomegaly appreciated. No abdominal bruit. Bowel sounds are normally heard. : Deferred. RECTAL: Deferred. LYMPHATIC: No lymphadenopathy noted in the neck or groin. EXTREMITIES: No edema or cyanosis. No clubbing. The pulses are symmetrical bilaterally. The radial, femoral, dorsalis pedis and the posterior tibial pulses are palpated and found to be in good volume and amplitude. MUSCULOSKELETAL: No acute joint deformities or swelling SKIN: There are no significant scars or skin rash noted. NEUROPSYCHIATRIC: The patient is alert and oriented x3. Appears to be in a good mood. The higher functions are grossly within normal limits. No tremors or rigidity noted. Data Labs: Other Labs: Laboratory Last Values WBC 12.7 10^3/uL (4.0 -10.0) H 10/29/19 03:33 Corrected WBC Cancelled 10/28/19 10:52 RBC 5.72 10^6/uL (4.1 -5.3) H 10/29/19 03:33 Hgb 16.2 g/dL (11.7-1 6.6) 10/29/19 03:33 Hct 50.1 % (42.0-52.0 ) 10/29/19 03:33 MCV 87.6 fL (80-94) 10/29/19 03:33 MCH 28.3 pg (28.0-34. 0) 10/29/19 03:33 MCHC 32.3 g/dL (30.0-3 6.0) 10/29/19 03:33 RDW 13.1 % (12.1-15.1 ) 10/29/19 03:33 Plt Count 222 10^3/cmm (130 -400) 10/29/19 03:33 MPV 9.7 fL (7.4-10.4) 10/29/19 03:33 Gran % Cancelled 10/28/19 10:52 Neut % (Auto) 67.2 % 10/29/19 03:33 Lymph % (Auto) 22.2 % 10/29/19 03:33 [place] % (Auto) 6.7 % 10/29/19 03:33 Eos % (Auto) 3.0 % 10/29/19 03:33 Baso % (Auto) 0.5 % 10/29/19 03:33 Neut # (Auto) 8.52 10^3/uL (1.8 -7.7) H 10/29/19 03:33 Lymph # (Auto) 2.8 10^3/uL (0.8- 4.8) 10/29/19 03:33 [place] # (Auto) 0.9 10^3/uL (0.2- 0.9) 10/29/19 03:33 Eos # (Auto) 0.4 10^3/uL (0.0- 0.8) 10/29/19 03:33 Baso # (Auto) 0.1 10^3/uL (0.0- 0.1) 10/29/19 03:33 Absolute Gran (aut o) Cancelled 10/28/19 10:52 Nucleated RBC % (a uto) 0 % 10/29/19 03:33 Nucleated RBCs # 0.0 /100WBC 10/29/19 03:33 ESR 5 mm/hr (0-10) 10/28/19 11:42 PT 11.60 SECONDS (12 .1-14.9) L 10/28/19 10:52 INR 0.82 (0.8-1.2) 10/28/19 10:52 APTT 20.7 SECONDS (23. 9-36.7) L 10/28/19 10:52 Sodium 137 mmol/L (136-1 45) 10/29/19 03:33 Potassium 3.9 mmol/L (3.5-5 .1) 10/29/19 03:33 Chloride 104 mmol/L (98-10 7) 10/29/19 03:33 Carbon Dioxide 22 mmol/L (22-29) 10/29/19 03:33 Anion Gap 14.9 (5-19) 10/29/19 03:33 BUN 14 mg/dL (6-20) 10/29/19 03:33 Creatinine 1.2 mg/dL (0.7-1. 2) 10/29/19 03:33 GFR Calculation 65.8 mL/min (90-1 30) L 10/29/19 03:33 Glucose 112 mg/dL (65-115 ) 10/29/19 03:33 Calculated Osmolal ity 281 mOsm/kg (285- 295) L 10/29/19 03:33 Calcium 8.6 mg/dL (8.5-10 .5) 10/29/19 03:33 Magnesium 2.1 mg/dL (1.7-2. 3) 10/29/19 03:33 Total Bilirubin 0.4 mg/dL (0.15-1 .2) 10/29/19 03:33 AST 35 U/L (0-40) 10/29/19 03:33 ALT 53 U/L (0-41) H 10/29/19 03:33 Alkaline Phosphata se 75 IU/L (40-130) 10/29/19 03:33 Creatine Kinase 159 U/L (39-308) 10/28/19 10:52 Troponin T Baselin e 7 ng/L (0-15) 10/28/19 10:52 Troponin T 120 Min brett 7.52 ng/L (0-15) 10/28/19 12:38 Delta Troponin T 0.52 ABS# (0-10) 10/28/19 12:38 Troponin T Hi Sens 6Hr 7.50 ng/L (0-15) 10/28/19 17:38 Troponin T Hi Sens 6Hr Delta 0.50 ng/L (0-12) 10/28/19 17:38 C-Reactive Protein 4.7 mg/L (0.0-4.9 ) 10/28/19 10:52 C-React Prot High Sens 0.410 mg/dL (0.0- 0.3) H 10/28/19 10:52 NT-Pro-B Natriuret Pep 10 pg/mL (0-125) 10/28/19 10:52 Total Protein 6.0 g/dL (6.6-8.7 ) L 10/29/19 03:33 Albumin 3.3 g/dL (3.5-5.2 ) L 10/29/19 03:33 Globulin 2.7 g/dL (1.3-4.6 ) 10/29/19 03:33 Imaging^: Myocardial perfusion imaging: My impression: Done on 10/02/2019 1. Myocardial perfusion imaging revealing patchy areas of persistent decreased tracer uptake in the anterior wall and inferior wall regions, most likely represent attenuation artifacts. 2. Normal LV ejection fraction of 70%. 3. LV wall motion analysis revealing no gross wall motion normalities. 4. Normal LV volume. Echo: My impression: 09/17/2019 Normal left ventricular size and systolic function, EF 59 %. No regional wall motion abnormalities. Grade I/IV diastolic dysfunction (abnormal relaxation filling pattern), normal to mildly elevated filling pressures. No significant stenotic or regurgitant lesions Normal cardiac chamber sizes There is no pericardial effusion. There are no intracardiac masses. No previous study is available for comparison. CTA Chest: Radiologist's impression: No pulmonary embolism. 2. Mild LEFT heart enlargement. 3. No pneumonia. 4. Prior cholecystectomy. 5. Subcentimeter mediastinal and hilar lymph nodes. EKG^: EKG 1: My Interpretation: The EKG showed normal sinus rhythm with nonspecific interventricular conduction delay. Otherwise unremarkable A&P Assessment and plan (1) Atypical chest pain: Discussed with the patient, implications of all the test findings. Patient has an unremarkable myocardial perfusion imaging, echocardiogram and CTA. No evidence of myocardial injury. Most likely the pain is musculoskeletal in origin. He has a pleuritic component for the pain. He may be tried on some anti-inflammatory medications. I discussed with the patient about the limitations of the noninvasive test. The chances of him having significant coronary artery disease is less than 10%. The patient understood this well and is not wanting to undergo any further cardiac tests at this point. Status: Acute (2) Benign essential hypertension with target blood pressure below 140/90: Currently he is normotensive. Advised to continue the current med ications. Status: Acute (3) Dyslipidemia: May continue on the current medications. Status: Acute Additional A&P Information If the patient continues to remain stable, may be discharged home from a cardiac standpoint. He may see Dr. Gonzalez, his stock crane operator as an outpatient in a month. 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
--- NOTE | 2019-10-29 13:13 | PM.PN ---
Subjective Subjective: Interval history: History and physical reviewed. Patient still complaining of some chest discomfort, which she reports has not really completely abated since admission. Medications: Reviewed: Yes Vitals/I&O/Wt Last Vital Signs Temp 98.1 F 10/29/19 11:08 Pulse 80 10/29/19 11:08 Resp 21 H 10/29/19 11:08 BP 128/76 10/29/19 11:08 Pulse Ox 93 10/29/19 11:08 10/28/19 10/29/19 10/29/19 22:59 06:59 14:59 Intake Total 480 / 480 120 / 600 Balance 480 / 480 120 / 600 Weight last 48 hrs Weight 130.635 kg Physical Exam Narrative: EXAM NARRATIVE: General exam is no apparent distress Cardiovascular regular rate and rhythm without murmur Lungs clear Abdomen is soft with positive bowel sounds. No obvious organomegaly Extremities no cyanosis clubbing or edema Data : 10/29/19 03:33 10/29/19 03:33 A&P Assessment and plan (1) Atypical chest pain: Recent nuclear stress test negative. However, patient continues to have chest discomfort. Echocardiogram also done and no significant abnormalities. Troponins negative Cardiology consultation Continue telemetry Morphine as needed for pain control CTA demonstrated no pulmonary embolism TSH in June was normal Status: Acute (2) GERD (gastroesophageal reflux disease): Continue Protonix 40 mg twice daily. Change to p.o. Status: Acute (3) Hypertension: Continue patient's home medications Status: Acute (4) Sleep apnea: Will need to follow-up with his primary care provider as a follow-up for further evaluation of this. Status: Acute (5) Dyslipidemia: Continue statin Status: Acute (6) Lower extremity edema: History of lower extremity edema. Continue Bumex. No significant edema present today Status: Acute Additional A&P Information Lovenox for DVT prophylaxis Full code Attestations Medical Necessity Statement*: Needs continued hospitalization, for further evaluation of persistent chest discomfort. Coding Level of Care Code Acute Finance Effectiveness Manager for Chg Fwd Diagnoses Atypical chest pain R07.89 GERD (gastroesophageal reflux disease) K21.9 Hypertension I10 Sleep apnea G47.30 Dyslipidemia E78.5 Lower extremity edema R60.0
--- NOTE | 2019-10-29 14:14 | PC.RESP ---
Smoking Cessation information sent to patient.
[2019-10-29] MEDS: enoxaparin 40 mg/0.4 mL Syringe SUBCUT (15:38)
[2019-10-29] MEDS: ketorolac 30 mg/mL INJ IVP (17:15)
--- NOTE | 2019-10-29 18:10 | PM.DCS ---
Discharge Providers Date of Admission: 10/28/19 13:17 Date of Discharge: October 29, 2019 Attending Provider at Admission: Jeremy Singh MD Attending Provider at Discharge: Stew Velasco MD Primary Care Provider: Maris Cavazos DO Diagnoses at Discharge Discharge Diagnosis (1) Atypical chest pain: Status: Acute Problem details: Improved significantly with Toradol injection (2) Benign essential hypertension with target blood pressure below 140/90: Status: Acute (3) Dyslipidemia: Status: Acute Reason for Visit Reason for Visit: CP Hospital Course Hospital Course: Sravan is a 44-year-old white male who presented to the emergency department via cardiology clinic with complaints of chest discomfort, substernal, lower portion of sternum. He reported it was worse when he took a deep breath and it was alleviated with laying down. He denied a recent echocardiogram demonstrating normal EF and a recent nuclear stress test that was essentially negative. Troponins normal. Telemetry normal. EKG nonischemic. CTA performed no pulmonary embolism. Cardiology was consulted and after discussion with the patient did not believe angiogram was indicated. I gave 1 dose of Toradol to the patient with significant improvement in pain to near complete resolution. He was discharged home, with follow-up with his primary care provider in 3 to 5 days. He will take Protonix as well at home. He will take Tylenol for further pain. Ibuprofen if taken should be very limited, taken with food as patient has a history of ulcer. Physical Exam Narrative: EXAM NARRATIVE: See examination from earlier today Discharge Data Data Completed and Pending: Completed Studies During Hospitalization Category Date Time Status CT angio chest PE protcl [id number] Stat Cat Scan 10/28/19 10:57 Completed XR chest 1V kodi ble [id number] Stat Exams 10/28/19 10:35 Completed Pending at discharge Category Date Time Status Complete Blood Co unt w/Auto AM LABS Lab 10/30/19 04:00 Ordered Comprehensive Met abolic Panel AM LA BS Lab 10/30/19 04:00 Ordered Lipase Stat Lab 10/29/19 10:52 Received Magnesium AM LABS Lab 10/30/19 04:00 Ordered Magnesium AM LABS Lab 10/31/19 04:00 Ordered Labs from last 24 hours 10/29/19 10/29/19 10/29/19 10:52 03:33 03:33 WBC 12.7 H RBC 5.72 H Hgb 16.2 Hct 50.1 MCV 87.6 MCH 28.3 MCHC 32.3 RDW 13.1 Plt Count 222 MPV 9.7 Neut % (Auto) 67.2 Lymph % (Auto) 22.2 [place] % (Auto) 6.7 Eos % (Auto) 3.0 Baso % (Auto) 0.5 Neut # (Auto) 8.52 H Lymph # (Auto) 2.8 [place] # (Auto) 0.9 Eos # (Auto) 0.4 Baso # (Auto) 0.1 Nucleated RBC % (a uto) 0 Nucleated RBCs # 0.0 Sodium 137 Potassium 3.9 Chloride 104 Carbon Dioxide 22 Anion Gap 14.9 BUN 14 Creatinine 1.2 GFR Calculation 65.8 L Glucose 112 Calculated Osmolal ity 281 L Calcium 8.6 Magnesium Total Bilirubin 0.4 AST 35 ALT 53 H Alkaline Phosphata se 75 Troponin T Hi Sens 6Hr Troponin T Hi Sens 6Hr Delta Total Protein 6.0 L Albumin 3.3 L Globulin 2.7 Lipase Pending 10/29/19 10/28/19 03:33 17:38 WBC RBC Hgb Hct MCV MCH MCHC RDW Plt Count MPV Neut % (Auto) Lymph % (Auto) [place] % (Auto) Eos % (Auto) Baso % (Auto) Neut # (Auto) Lymph # (Auto) [place] # (Auto) Eos # (Auto) Baso # (Auto) Nucleated RBC % (a uto) Nucleated RBCs # Sodium Potassium Chloride Carbon Dioxide Anion Gap BUN Creatinine GFR Calculation Glucose Calculated Osmolal ity Calcium Magnesium 2.1 Total Bilirubin AST ALT Alkaline Phosphata se Troponin T Hi Sens 6Hr 7.50 Troponin T Hi Sens 6Hr Delta 0.50 Total Protein Albumin Globulin Lipase Vitals: Last Vital Signs Temp 98.0 F 10/29/19 14:49 Pulse 79 10/29/19 14:49 Resp 17 10/29/19 14:49 BP 109/62 10/29/19 14:49 Pulse Ox 93 10/29/19 14:49 Discharge Plan Discharge Patient Disposition: Home Condition: Stable Prescriptions: New pantoprazole 40 mg Tablet,Delayed Release (Dr/Ec) 40 mg PO BID Qty: 60 RF: 0 Continued atorvastatin 20 mg tablet 20 mg PO DAILY Qty: 90 RF: 1 testosterone cypionate 200 mg/mL oil 200 mg IM .every 2 weeks Qty: 0 RF: 0 bumetanide 0.5 mg tablet 0.5 mg PO DAILY Qty: 30 RF: 0 Allergy Medication 1 tab PO DAILY RF: 0 Tylenol Extra Strength 500 mg Tablet 1,000 mg PO PRN RF: 0 lisinopril 10 mg tablet 10 mg PO BEDTIME RF: 0 Discontinued ibuprofen 200 mg Tablet 400 mg PO PRN RF: 0 Discharge Orders: Discharge Order (Routine); Ordered 10/29/19 Ordered By: Stew Velasco Referrals: Maris Cavazos DO [Primary Care Provider] - 4-7 days Discharge Diet: Cardiac Discharge Activity: Increase activity as tolerated Activity Restrictions/Additional Instructions: Take all medicine as prescribed Discharge Attestations Time Spent in Discharge Care*: greater than 30 min Quality Metrics Clinical Quality Measures During this hospital stay, did patient experience: None Coding Level of Care Code 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
[2019-10-29] MEDS: pantoprazole DR 40 mg Tablet PO (18:20)
[2019-10-29 18:53] LABS: Lipase 17 U/L (13-60)
== END 2019-10-29 18:30 | disposition home or self-care (01) ==
LOC: ER 11:17 → CSU 14:00
PROVIDERS: Family Medicine; Admitting Provider Internal Medicine; PCP Family Medicine; Visit Provider Internal Medicine
DX: R07.89 Other chest pain (principal); I10 Essential (primary) hypertension; E78.5 Hyperlipidemia, unspecified; G47.30 Sleep apnea, unspecified; K21.9 Gastro-esophageal reflux disease without esophagitis; R60.0 Localized edema; Z79.82 Long term (current) use of aspirin; F17.228 Nicotine dependence, chewing tobacco, with other nicotine-induced disorders; Z82.49 Family history of ischemic heart disease and other diseases of the circulatory system; E66.9 Obesity, unspecified; Z68.38 Body mass index [BMI] 38.0-38.9, adult
CPT/HCPCS: 12345; 36415; 71045; 71275; 80053; 82550; 83690; 83735; 83880; 84484; 85025; 85610; 85651; 85730; 86140; 86141; 93005; 96372; 96374; 96375; 99283; 99285; C9113; G0378; J1650; J1885; J2270; Q9967

== ENCOUNTER 2020-01-01 20:00 | Outpatient (CLI) | payer BC, SELFPAY | END 2020-01-01 20:01 | disposition home or self-care (01) | LOC: SLEEP 01-02 09:19 | PROVIDERS: PCP Family Medicine; Visit Provider Family Medicine | DX: G47.33 Obstructive sleep apnea (adult) (pediatric) (principal) | CPT/HCPCS: 95811 ==

== ENCOUNTER 2020-03-30 01:58 | Emergency (ER) | payer OTHER, SELFPAY ==
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
[2020-03-30 02:09] VITALS: BP 122/79; PULSE 92; RESP 21; TEMP 36.3; O2SAT 96; BMI 37.5
[2020-03-30 02:46] VITALS: BP 109/70; PULSE 74; RESP 18; O2SAT 98
[2020-03-30] MEDS: iohexol 300 mg/mL 100 mL Btl IV (02:53)
[2020-03-30 03:26] LABS: Basophils # 0.1 10^3/uL (0.0-0.1); Basophils % 0.5 %; Eosinophils # 0.3 10^3/uL (0.0-0.8); Eosinophils % 1.9 %; Hematocrit 46.6 % (42.0-52.0); Hemoglobin 15.5 g/dL (11.7-16.6); Lymphocytes # 2.8 10^3/uL (0.8-4.8); Lymphocytes % 20.9 %; Mean Corpuscular HGB Conc 33.3 g/dL (30.0-36.0); Mean Corpuscular Hemoglobin 28.4 pg (28.0-34.0); Mean Corpuscular Volume 85.5 fL (80-94); Mean Platelet Volume 9.2 fL (7.4-10.4); Monocytes # 0.8 10^3/uL (0.2-0.9); Monocytes % 5.7 %; Neutrophils # 9.31 10^3/uL (1.8-7.7); Neutrophils % 70.5 %; Nucleated Red Blood Cells % 0 %; Platelet Count 230 10^3/cmm (130-400); Red Blood Count 5.45 10^6/uL (4.1-5.3); Red Cell Distribution Width 12.8 % (12.1-15.1); White Blood Count 13.2 10^3/uL (4.0-10.0)
[2020-03-30 03:28] VITALS: RESP 21; O2SAT 96
[2020-03-30] MEDS: morphine 4 mg/mL SDV 1 mL IVP (03:28)
[2020-03-30 03:44] LABS: Alanine Aminotransferase 24 U/L (0-41); Albumin Level 3.5 g/dL (3.5-5.2); Alkaline Phosphatase 71 IU/L (40-130); Aspartate Amino Transferase 17 U/L (0-40); Blood Urea Nitrogen 15 mg/dL (6-20); Carbon Dioxide 23 mmol/L (22-29); Chloride 100 mmol/L (98-107); Globulin 2.4 g/dL (1.3-4.6); Glomerular Filtration Rate 91.7 mL/min (90-130); Glucose 118 mg/dL (65-115); Osmolality Calculated 276 mOsm/kg (285-295); Sodium 132 mmol/L (136-145); Total Bilirubin 0.3 mg/dL (0.15-1.2); Total Protein 5.9 g/dL (6.6-8.7)
[2020-03-30 03:46] VITALS: BP 109/70; PULSE 86; RESP 18; O2SAT 98
[2020-03-30 04:19] VITALS: BP 109/70; PULSE 86; RESP 18; O2SAT 98
== END 2020-03-30 03:45 | disposition home or self-care (01) ==
PROVIDERS: Emergency Provider Emergency Medicine; PCP Family Medicine
DX: S16.1XXA Strain of muscle, fascia and tendon at neck level, initial encounter (principal); I10 Essential (primary) hypertension; E78.5 Hyperlipidemia, unspecified; F17.220 Nicotine dependence, chewing tobacco, uncomplicated; V69.9XXA Occupant (driver) (passenger) of heavy transport vehicle injured in unspecified traffic accident, initial encounter
CPT/HCPCS: 70450; 71260; 72125; 72128; 72131; 74177; 80053; 85025; 96374; 99283; J2270; Q9967

== ENCOUNTER → 2020-04-16 09:28 | Outpatient (BNVA) | payer BC, SELFPAY | PROVIDERS: PCP Family Medicine; Visit Provider Family Medicine | DX: I10 Essential (primary) hypertension (principal); R79.89 Other specified abnormal findings of blood chemistry; E78.5 Hyperlipidemia, unspecified; R06.02 Shortness of breath; F17.229 Nicotine dependence, chewing tobacco, with unspecified nicotine-induced disorders; Z79.899 Other long term (current) drug therapy | CPT/HCPCS: 80053; 80061; 81015; 82043; 84403; 85025; G0103 ==

== ENCOUNTER → 2020-04-30 16:16 | Outpatient (BNVA) | payer BC, SELFPAY | PROVIDERS: PCP Family Medicine; Visit Provider Family Medicine | DX: R06.02 Shortness of breath (principal); Z20.822 Contact with and (suspected) exposure to COVID-19 | CPT/HCPCS: 87635 ==

== ENCOUNTER 2020-05-06 11:07 | Outpatient (CLI) | payer BC, SELFPAY ==
--- NOTE | 2020-05-06 13:07 | PFTS_ITS ---
Date of Study:05/06/20 Date of Dictation: MECHANICS: Forced vital capacity (FVC) is normal. Forced expiratory volume in one second (FEV1) is normal. FEV1/FVC is normal. FLOW VOLUME LOOP: Normal. LUNG VOLUMES: Not measured. DIFFUSING CAPACITY FOR CARBON MONOXIDE: Not measured INTERPRETATION: The prebronchodilator spirometry is consistent with mild restriction. The postbronchodilator spirometry is normal. There is a significant postbronchodilator response. The constellation of these findings are consistent with reversible airflow obstruction that can be seen in diseases such as asthma. MTDD
== END 2020-05-06 11:08 | disposition home or self-care (01) ==
PROVIDERS: PCP Family Medicine; Visit Provider Family Medicine
DX: R06.02 Shortness of breath (principal)
CPT/HCPCS: 94060; J7611

== ENCOUNTER 2020-05-14 11:52 | Outpatient (CLI) | payer BC, SELFPAY ==
[2020-05-17 16:32] LABS: Alternaria Alternata (M6) Ige <0.10 kU/L; Alternaria Class 0; Bermuda Class 0; Bermuda Grass (G2) Ige <0.10 kU/L; Cat Dander (E1) Ige <0.10 kU/L; Cat Dander Class 0; Common Ragweed (Short) (W1) Ig <0.10 kU/L; D. Farinae Class 0; Dermatophagoides Class 0; Dermatophagoides Farinae (D2) <0.10 kU/L; Dermatophagoides Pteronyssinus <0.10 kU/L; Dog Dander (E5) Ige <0.10 kU/L; Dog Dander Class 0; Elm (T8) Ige <0.10 kU/L; Elm Class 0; English Plantain (W9) Ige <0.10 kU/L; English Plantain Class 0; House Dust (Greer) (H1) Ige <0.10 kU/L; House Dust (Hollister- Stier) <0.10 kU/L; House Dust Class 0; Immunoglobulin E 15 kU/L (<OR=114); Immunoglobulin E 16 kU/L (<OR=114); Johnson Grass (G10) Ige <0.10 kU/L; Johnson Grass Cl 0; June Grass Class 0; June Grass(Kentucky Blue) (G8) <0.10 kU/L; Lamb'S Quarters (Goose Foot) <0.10 kU/L; Lamb'S Quarters Class 0; Maple (Box Elder) (T1) Ige <0.10 kU/L; Maple Class 0; Meadow Fescue (G4) Ige <0.10 kU/L; Meadow Fescue Class 0; Mucor Racemosus Class 0; Oak (T7) Ige <0.10 kU/L; Oak Class 0; Orchard Grass (Cocksfoot) (G3) <0.10 kU/L; Penicillium Class 0; Penicillium Notatum (M1) Ige <0.10 kU/L; Perennial Rye Grass (G5) Ige <0.10 kU/L; Perennial Rye Grass Class 0; Ragweeed Class 0; Rough Marsh Elder (W16) Ige <0.10 kU/L; Rough Marsh Elder Class 0; Sweet Vernal Class 0; Sweet Vernal Grass (G1) Ige <0.10 kU/L; Timothy Grass (G6) Ige <0.10 kU/L; Timothy Grass Class 0
[2020-05-19 14:27] LABS: Aspergillus Fumigatus, Igg Ab, 21.7 mg/L (<=102)
== END 2020-05-14 11:53 | disposition home or self-care (01) ==
LOC: LAB 11:56
PROVIDERS: PCP Family Medicine; Visit Provider Internal Medicine Critical Care Medicine
DX: R06.02 Shortness of breath (principal)
CPT/HCPCS: 36415; 82785; 86003

== ENCOUNTER 2020-06-17 09:12 | Outpatient (CLI) | payer OTHER, SELFPAY ==
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
== END 2020-06-17 09:13 | disposition home or self-care (01) ==
PROVIDERS: PCP Family Medicine; Visit Provider Family Medicine Adult Medicine
DX: R07.9 Chest pain, unspecified (principal)
CPT/HCPCS: 71100

== ENCOUNTER 2020-08-13 06:52 | Outpatient (CLI) | payer BC, SELFPAY ==
--- NOTE | 2020-08-13 07:15 | USCV_ITS ---
Sravan Gipson Age: 45 Gender: M : 1975 Exam Date: 08/13/2020 07:12 Ordering Phys: Maris Cavazos DO Technologist: Yoly Clement Exam Location: [facility] – [place] Indication: BLE EDEMA HISTORY: Lower extremity swelling. PROCEDURES: Venous duplex imaging was performed in bilateral lower extremities. The following venous structures were evaluated: common femoral vein, profunda vein, proximal portion of the greater saphenous vein, superficial femoral vein, and the popliteal vein. Serial compression, augmentation maneuvers, and spectral Doppler flow evaluation were performed. FINDINGS: Normal 2-D Doppler and augmentation and compressibility throughout the lower extremity venous structures. Additional imaging through the proximal calf veins also reveals no thrombus. Limited evaluation of the greater saphenous vein is patent with no thrombus. CONCLUSIONS No evidence of bilateral lower extremity DVT. Dr. Annabella Lo DO (Electronically Signed) Final Date: 13 August 2020 09:14 S
== END 2020-08-13 06:53 | disposition home or self-care (01) ==
PROVIDERS: PCP Family Medicine; Visit Provider Family Medicine
DX: R60.0 Localized edema (principal)
CPT/HCPCS: 93970

== ENCOUNTER → 2020-09-20 14:39 | Outpatient (BNVA) | payer BC, SELFPAY | PROVIDERS: PCP Family Medicine; Visit Provider Surgery | DX: Z11.52 Encounter for screening for COVID-19 (principal); K42.9 Umbilical hernia without obstruction or gangrene | CPT/HCPCS: 87635 ==

== ENCOUNTER 2020-09-22 12:38 | Outpatient (CLI) | payer BC, SELFPAY ==
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
== END 2020-09-22 12:39 | disposition home or self-care (01) ==
PROVIDERS: PCP Family Medicine; Visit Provider Family Medicine
DX: I87.2 Venous insufficiency (chronic) (peripheral) (principal); M79.89 Other specified soft tissue disorders; M79.604 Pain in right leg; M79.605 Pain in left leg
CPT/HCPCS: 93970

== ENCOUNTER 2020-09-24 09:59 | Day surgery (SDC) | payer BC, SELFPAY ==
[2020-09-23 12:59] VITALS: BMI 38.2
[2020-09-24] VITALS (20 sets, daily range): BP systolic 117–151; BP diastolic 71–99; PULSE 86–100; RESP 16–24; TEMP 36.8–37.4; O2SAT 90–100
--- NOTE | 2020-09-24 10:39 | ANES.PREANE2 ---
Pre-Anesthetic Assessment Pre-Anesthetic Assessment: Height/Weight: Height 1.85 m Weight 131.542 kg Temp Pulse Resp BP Pulse Ox 98.2 F 88 18 142/86 94 09/24/20 10:14 09/24/20 10:14 09/24/20 10:14 09/24/20 10:14 09/24/20 10:14 Preop Diagnosis: Incarcerated umbilical hernia Proposed Procedure: Operation Date: 09/24/20 11:30 Proposed Procedures p Laparoscopic Umbilical Hernia Repair 13912 K42.9(Not Applicable) - Niles Prado MD Was Beta Gustavo taken within 24 hours: N/A Was Clonidine taken within 24 hours: N/A Last intake: Intake Last Liquid Date 09/24/20 Last Liquid Time 08:00 Last Solid Date 09/23/20 Last Solid Time 19:00 Social: Social History: Tobacco and No alcohol Exam: Pre-Anes Outpt Exam: alert, oriented x 3 and regular rate & rhythm Airway: Submandibular: WNL Cervical ROM: WNL Dentition: Full Pulmonary: Pulmonary: Asthma, COPD and Sleep apnea CV/HEM: CV/HEM: HTN GI: GI: GERD Metabolic: Metabolic: Hyperlipidemia and Morbid obesity Musc/skel: Musc/skel: Lower Back Pain and OA/DJD Neuropsych: Neuropsych: Anxiety and Depression Anesthetic Plan: ASA status: 3 Anesthesia: General Risk of > 500 ml blood loss (7ml/kg in children): No PFSH Anesthesia PFSH: Medical History (Updated 09/20/20 @ 14:34 by Niles Prado MD) Asthma Benign essential HTN Cervical strain, acute Dyslipidemia Surgical History (Updated 09/20/20 @ 14:34 by Niles Prado MD) History of appendectomy open History of repair of ACL replacement- 2017 Hx laparoscopic cholecystectomy Family History Other CAD (coronary artery disease) Diabetes Social History Smoking and tobacco status: current every day smoker (chew) smokeless tobacco Smokeless tobacco user: chewing tobacco Smokeless tobacco details: 2 cans per week Second hand smoke exposure: Yes Smoking risk assessment/counseling performed?: Yes Alcohol intake: current Alcohol intake frequency: holidays/special occasions only Counseling given: No Counseling given: No Lives independently: Yes Household members: spouse Marital status: Current occupational status: employed Current occupation: [employer] Current occupational exposures/hazards: Yes History of recent travel: No Current gender identity: Male Data Anesthesia Cardiac Studies: No Data to Display
[2020-09-24] MEDS: sodium chloride 0.9% 1,000 ML 30 ML IV (10:49)
--- NOTE | 2020-09-24 12:08 | W.PM.OPSUD ---
Surgery/Procedure H&P Update DATE OF PROCEDURE: September 24, 2020 DATE H&P PERFORMED: 09/20/20 H&P UPDATE INFORMATION: I have reviewed H&P completed within last 30 days, I have examined patient prior to procedure and No changes to prior documentation PREOP DIAGNOSIS: Incarcerated umbilical hernia PLANNED PROCEDURE: Operation Date: 09/24/20 11:30 Proposed Procedures p Laparoscopic Umbilical Hernia Repair 02190 K42.9(Not Applicable) - Niles Prado MD
[2020-09-24] MEDS: HYDROmorphone 1 mg/mL INJ 1 mL 0.5 MG IVP ×2 (13:58→14:33)
[2020-09-24] MEDS: ondansetron 2 mg/ML SDV 2 mL 4 MG IVP (14:11)
[2020-09-24] MEDS: meperidine 50 mg/mL INJ 12.5 MG IVP (14:13)
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
--- NOTE | 2020-09-24 14:29 | P.OP_ITS ---
Operative Report Date of procedure: September 24, 2020 Pre-op Diagnosis: Incarcerated umbilical hernia Post-op Diagnosis: Incarcerated umbilical hernia containing omentum Procedure Done: Laparoscopic repair of incarcerated umbilical hernia with Proceed mesh measuring 15 x 15 cm Pathology: none sent Surgeon: Niles Prado Anesthesia: General Condition: stable Disposition: PACU Procedure: The patient was taken to the Operating Room and was intubated under general anesthesia after the antibiotic had been administered. The abdomen was prepped and draped in a sterile manner. Using a 15 blade, a 2-cm incision was made in the left upper quadrant in the anterior axillary line and pneumoperitoneum was created using Verres needle. A 10 mm Lio port was placed and 15 mm of pneumoperitoneum was created after a 10 mm 30? scope had been introduced. 5 mm port was placed at the level of the umbilicus and in the left lower quadrant under direct visualization. Using a combination of electrocautery and scissors the peritoneum in the midline was taken down and the omental fat within the hernial sac was reduced. A spinal needle was introduced through the abdominal wall and the edges of the hernial defect were marked and measured 6 x 5 cm. A 5 cm margin was marked on the abdominal wall on the outer edge of the hernial defect. 15 x 15 cm Proceed mesh was selected and 4 separate 2-0 [place] sutures were placed at the 4 corners of the mesh. Grannie needle was passed through the stab incisions and used to grasp the free ends of the [place] sutures which were then used to pull the mesh up against the abdominal wall; 5 mm SecurStraps were placed 1 cm apart along the edge of the mesh to hold it against the abdominal wall. At the end of this, it was noted that the mesh was well positioned over the hernial defect. 20 cc of saline mixed with 20cc of Exparel mixed with 20cc of 0.5% Marcaine was infiltrated in the midclavicular line under laparoscopic visualization for a TAP block. All ports were removed under direct visualization and there was no bleeding noted from the port sites. The external oblique aponeurosis was approximated at this port site using figure of eight 0 Vicryl suture. The subcutaneous tissue was approximated using 3-0 Vicryl sutures. The skin at all 3 port sites was closed using subcuticular 4-0 Monocryl suture. The stab incisions and the port sites were covered with Dermabond. Abdominal binder was placed at the end of the procedure and the patient was extubated and transferred to recovery room in stable condition.
--- NOTE | 2020-09-24 14:42 | ANE.PACU2 ---
Inpatient post-anesthesia follow up: Airway intact: Yes Vital signs: Temperature 99.3 F Pulse Rate 91 Respiratory Rate 18 Blood Pressure 148/95 Pulse Oximetry 92 Oxygen Delivery Me thod Nasal Cannula Oxygen Flow Rate 3 Fraction of Inspir ed Oxygen Hydration adequate: Yes Nausea and vomiting: No Pain level: 4 Mental status: Baseline
[2020-09-24] MEDS: HYDROmorphone 1 mg/mL INJ 1 mL IVP (15:03)
[2020-09-24] MEDS: acetaminophen 1,000 MG/100 ML PIGGYBACK 400 MG IV (15:11)
[2020-09-24] MEDS: HYDROcodone-acetaminophen 5-325 mg Tablet 1 TAB PO (16:08)
== END 2020-09-24 16:15 | disposition home or self-care (01) ==
PROVIDERS: PCP Family Medicine; Visit Provider Surgery
PROC: 0WQF4ZZ Repair Abdominal Wall, Percutaneous Endoscopic Approach (ICD-10-PCS; CPT 49653; principal; 2020-09-24 11:30)
DX: K42.0 Umbilical hernia with obstruction, without gangrene (principal); J44.9 Chronic obstructive pulmonary disease, unspecified; G47.30 Sleep apnea, unspecified; I10 Essential (primary) hypertension; E78.5 Hyperlipidemia, unspecified; E66.01 Morbid (severe) obesity due to excess calories; Z68.38 Body mass index [BMI] 38.0-38.9, adult; Z82.49 Family history of ischemic heart disease and other diseases of the circulatory system; F17.220 Nicotine dependence, chewing tobacco, uncomplicated
CPT/HCPCS: 49653; 96365; 96374; C9290; J0690; J1100; J1170; J2175; J2405; J2704; J3010; J3490; J7030

== ENCOUNTER → 2020-10-15 09:42 | Outpatient (BNVA) | payer BC, SELFPAY | PROVIDERS: PCP Family Medicine; Visit Provider Family Medicine | DX: I10 Essential (primary) hypertension (principal); F41.1 Generalized anxiety disorder; R60.0 Localized edema; Z79.899 Other long term (current) drug therapy | CPT/HCPCS: 80053; 80061; 82043; 85025 ==

== ENCOUNTER → 2020-11-12 08:43 | Outpatient (BNVA) | payer BC, SELFPAY | PROVIDERS: PCP Family Medicine; Visit Provider Family Medicine | DX: R60.0 Localized edema (principal); F17.229 Nicotine dependence, chewing tobacco, with unspecified nicotine-induced disorders | CPT/HCPCS: 80048 ==

== ENCOUNTER 2021-04-07 17:59 | Emergency (ER) | payer OTHER, SELFPAY ==
[2021-04-07 18:16] VITALS: BP 136/81; PULSE 90; RESP 18; TEMP 36.7; O2SAT 96; BMI 39.8
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
[2021-04-07 19:48] VITALS: BP 128/68; PULSE 90; RESP 18; O2SAT 98
== END 2021-04-07 19:50 | disposition home or self-care (01) ==
PROVIDERS: Emergency Provider Physician Assistant; PCP Family Medicine
DX: S39.012A Strain of muscle, fascia and tendon of lower back, initial encounter (principal); S49.92XA Unspecified injury of left shoulder and upper arm, initial encounter; I10 Essential (primary) hypertension; E78.5 Hyperlipidemia, unspecified; F17.210 Nicotine dependence, cigarettes, uncomplicated; F17.220 Nicotine dependence, chewing tobacco, uncomplicated; V83.5XXA Driver of special industrial vehicle injured in nontraffic accident, initial encounter
CPT/HCPCS: 72128; 72131; 73030; 99282

== ENCOUNTER → 2021-12-30 09:07 | Outpatient (BNVA) | payer BC, SELFPAY | PROVIDERS: PCP Family Medicine; Visit Provider Family Medicine | DX: I10 Essential (primary) hypertension (principal); E78.5 Hyperlipidemia, unspecified; R35.1 Nocturia | CPT/HCPCS: 80053; 80061; 82043; 84153; 85025 ==

== ENCOUNTER → 2022-07-03 08:48 | Outpatient (BNVA) | payer BC, SELFPAY | PROVIDERS: PCP Family Medicine; Visit Provider Family Medicine | DX: I10 Essential (primary) hypertension (principal) | CPT/HCPCS: 80053 ==

== ENCOUNTER 2022-07-28 12:35 | Emergency (ER) | payer BC, SELFPAY ==
[2022-07-28 12:41] VITALS: BP 142/94; PULSE 85; RESP 18; TEMP 36.4; O2SAT 94
--- NOTE | 2022-07-28 12:44 | ECG_ITS ---
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 Measurements Intervals [place] Rate: 80 P: 36 OK: 181 QRS: 64 QRSD: 90 T: 77 QT: 370 QTc: 429 Interpretive Statements SINUS RHYTHM Compared to ECG 10/28/2019 16:43:49 Intraventricular conduction delay no longer present Electronically Signed On 07-29-2022 7:50:55 CDT by Armando Walker M.D. [id number]
--- NOTE | 2022-07-28 14:09 | ED_ITS ---
HPI - Chest Pain General: Chief Complaint: Chest Pain Stated Complaint: Chest Pressure, Left Side Tingling Time Seen by Provider: 07/28/22 12:46 History of Present Illness: 47-year-old male with a history of anxiety, GERD and asthma presents emergency room with chest pain that started 2 hours prior to come to the emergency room. Cannot describe the pain as a pressure-like sensation substernally with severity of 7 out of 10. Pain is nonradiating. No aggravating or exacerbating factors at this time. Patient review having similar complaints in the past and was diagnosed with anxiety at that time. Has any cough, coughing up blood or vomiting blood. No calf tenderness, leg swelling, fever or chills. Associated symptoms: Deny fever(s), palpitations or syncope Review of Systems Const: Denies: fever(s), chills, change in weight, fatigue, malaise, night sweats or daytime sleepiness Card: Reports: chest pain; Denies: palpitations, irregular heart rhythm, swelling of feet/ankles, lightheadedness, syncope, pre-syncope or orthopnea PFSH ED PFSH: Medical History Asthma Benign essential HTN Cervical strain, acute Dyslipidemia Surgical History History of appendectomy open History of repair of ACL replacement- 2017 History of umbilical hernia repair (09/24/20) Hx laparoscopic cholecystectomy Family History Other CAD (coronary artery disease) Diabetes Social History Smoking and tobacco status: current some day smoker (daily chewing tobacco usage) smokeless tobacco Smokeless tobacco user: chewing tobacco Smokeless tobacco details: 2 cans per week and some ciggarette smoking Second hand smoke exposure: Yes Smoking risk assessment/counseling performed?: Yes Alcohol intake: current Alcohol intake frequency: holidays/special occasions only Counseling given: No Substance/Drug Use: never Counseling given: No Lives independently: Yes Household members: spouse Marital status: Current occupational status: employed Current occupation: [employer] Current occupational exposures/hazards: Yes Do you think of yourself as: Straight/Heterosexual Current gender identity: Male Physical Exam Const: COMMON NORMALS: no acute distress and alert GENERAL APPEARANCE: cooperative Neck/C-Spine: COMMON NORMALS: full ROM, no lymphadenopathy, supple, no meningeal signs, no JVD, Thyroid normal and No carotid bruits THYROID: Thyroid normal Chest: CHEST: Yes Symmetrical chest wall rise and Yes tenderness Cardio: COMMON NORMALS: no JVD GI: OTHER: some tenderness due to hernia : COMMON NORMALS: Yes no CVA tenderness BLADDER/KIDNEY EXAM: Yes no CVA tenderness Back/Pelvis: COMMON NORMALS: no CVA tenderness, thoracic and lumbar spine normal to inspection, no thoracic nor lumbar tenderness, thoraco-lumbar ROM normal and straight leg raise negative bilaterally Neuro: SENSORIUM/ORIENTATION: Yes alert MENINGEAL SIGNS: Yes no meningeal signs Course ED course: Patient monitored in ER for several hours and had 2 set of cardiac enzymes and EKG which were within normal limits. No relief with nitro at this time. His pain is reproducible with deep palpation. Heart score is 2 Reevaluation(s): Reevaluation #1: At 4:45 PM patient was resting comfortably without any acute distress patient reveals that the morphine did help with his pain. Vital Signs: Vital signs: Vital Signs Temperature 97.6 F 07/28/22 12:41 Pulse Rate 74 07/28/22 15:55 Respiratory Rate 16 07/28/22 15:55 Blood Pressure 130/75 07/28/22 15:55 Pulse Oximetry 92 07/28/22 15:55 Oxygen Delivery Me thod Room Air 07/28/22 15:55 MDM - Chest Pain Medical Decision Making 47-year-old male with no significant cardiac history presents emerged with chest pain that started 2 hours ago. Patient with history of anxiety. In emergency room patient noted to significant enzymes and EKG which were within normal limits. They reassured patient at this time and close follow PCP recommended. Differential Diagnosis Likely acute massive pulmonary embolism, acute respiratory failure and acute myocardial infarction; Unlikely cardiac arrest or sudden cardiac Lab Data 07/28/22 14:25 07/28/22 14:25 Radiology Impressions Chest X-Ray 07/28/22 14:09 IMPRESSION: No acute chest abnormality. Laboratory Results WBC 12.1 10^3/uL (4.0-10.0) H 07/28/22 14:25 RBC 6.00 10^6/uL (4.1-5.3) H 07/28/22 14:25 Hgb 16.6 g/dL (11.7-16.6) 07/28/22 14:25 Hct 51.0 % (42.0-52.0) 07/28/22 14:25 MCV 85.0 fl (80-94) 07/28/22 14:25 MCH 27.7 pg (28.0-34.0) L 07/28/22 14:25 MCHC 32.5 g/dL (30.0-36.0) 07/28/22 14:25 RDW 13.2 % (12.1-15.1) 07/28/22 14:25 Plt Count 238 10^3/cmm (130-400) 07/28/22 14:25 MPV 9.3 fL (7.4-10.4) 07/28/22 14:25 Neut % (Auto) 65.4 % 07/28/22 14:25 Lymph % (Auto) 25.0 % 07/28/22 14:25 [place] % (Auto) 6.2 % 07/28/22 14:25 Eos % (Auto) 2.1 % 07/28/22 14:25 Baso % (Auto) 0.7 % 07/28/22 14:25 Neut # (Auto) 7.95 10^3/uL (1.8-7.7) H 07/28/22 14:25 Lymph # (Auto) 3.0 10^3/uL (0.8-4.8) 07/28/22 14:25 [place] # (Auto) 0.8 10^3/uL (0.2-0.9) 07/28/22 14:25 Eos # (Auto) 0.3 10^3/uL (0.0-0.8) 07/28/22 14:25 Baso # (Auto) 0.1 10^3/uL (0.0-0.1) 07/28/22 14:25 Nucleated RBC % (auto) 0 % 07/28/22 14:25 Nucleated RBCs # 0.0 /100WBC 07/28/22 14:25 Sodium 134 mmol/L (136-145) L 07/28/22 14:25 Potassium 4.0 mmol/L (3.5-5.1) 07/28/22 14:25 Chloride 101 mmol/L (98-107) 07/28/22 14:25 Carbon Dioxide 21 mmol/L (22-29) L 07/28/22 14:25 Anion Gap 16.0 (5-19) 07/28/22 14:25 BUN 16 mg/dL (6-20) 07/28/22 14:25 Creatinine 0.8 mg/dL (0.7-1.2) 07/28/22 14:25 GFR Calculation 103.6 mL/min (90-130) 07/28/22 14:25 Glucose 85 mg/dL (65-115) 07/28/22 14:25 Calculated Osmolality 278 mOsm/kg (285-295) L 07/28/22 14:25 Calcium 8.8 mg/dL (8.5-10.5) 07/28/22 14:25 Total Bilirubin 0.4 mg/dL (0.15-1.2) 07/28/22 14:25 AST 19 U/L (0-40) 07/28/22 14:25 ALT 24 U/L (0-41) 07/28/22 14:25 Alkaline Phosphatase 92 U/L (40-130) 07/28/22 14:25 Troponin T Baseline 9 ng/L (0-15) 07/28/22 14:25 Troponin T 120 Minute 8.63 ng/L (0-15) 07/28/22 16:12 Delta Troponin T -0.37 ABS# (0-10) L 07/28/22 16:12 Total Protein 6.7 g/dL (6.6-8.7) 07/28/22 14:25 Albumin 3.7 g/dL (3.5-5.2) 07/28/22 14:25 Globulin 3.0 g/dL (1.3-4.6) 07/28/22 14:25 Imaging Data CXR: My impression: no acute finding Discharge Plan Discharge Patient Disposition: Home Clinical Impression: Chest pain, Anxiety Condition: Stable Prescriptions: New alprazolam [Xanax] 0.5 mg tablet 0.25 mg PO BID PRN (Reason: anxiety) Qty: 14 0RF No Action buspirone 15 mg tablet 15 mg PO TID PRN (Reason: anxiety) Qty: 270 1RF citalopram 40 mg tablet 40 mg PO DAILY Qty: 90 1RF (DME) AUTO-TITRATING CPAP 8-12cm See Rx Instructions .Route .MEDSUPPLY Qty: 1 0RF Rx Instructions: As directed albuterol sulfate 90 mcg/actuation HFA aerosol inhaler 2 puff inhalation Q6H PRN (Reason: shortness of breath or wheezing) 30 Days Q ty: 8.5 6RF lisinopril 10 mg tablet 10 mg PO BEDTIME Qty: 90 1RF bumetanide 1 mg tablet 1 mg PO DAILY Qty: 90 1RF pantoprazole 40 mg tablet,delayed release (DR/EC) 40 mg PO DAILY Qty: 90 1RF Allergy Medication 1 tab PO DAILY atorvastatin 20 mg tablet 20 mg PO DAILY Singulair 10 mg tablet 10 mg PO BEDTIME Discharge Orders: Discharge ED (Routine); Ordered 07/28/22 Ordered By: Rito Mckeon Referrals: Maris Cavazos DO [Primary Care Provider] - Discharge Diet: Low Salt Discharge Activity: Resume usual activity Patient Instructions: Opioid Safety, Pain Management Coding Level of Care Code ED Academic Coordinator for Tolu Wayne
--- NOTE | 2022-07-28 14:09 | XR_ITS ---
WS: [id number] XR chest 1V 08703 REASON FOR EXAM: chest pain FINDINGS: The heart and mediastinum are within normal limits. Calcified granulomatous disease bilaterally. No active pulmonary parenchymal or pleural disease. Mild changes of degenerative spondylosis in the mid and lower thoracic spine. XR/XR chest 1V 02068 IMPRESSION: No acute chest abnormality.
[2022-07-28] MEDS: ondansetron 2 mg/ML SDV 2 mL 4 MG IVP (14:24)
[2022-07-28 14:25] VITALS: RESP 16; O2SAT 92
[2022-07-28] MEDS: morphine 4 mg/mL SDV 1 mL IVP (14:25)
[2022-07-28 14:26] VITALS: BP 127/80; PULSE 72
[2022-07-28] MEDS: aspirin 81 mg Chew Tablet 324 MG PO (14:26)
[2022-07-28 14:31] LABS: Basophils # 0.1 10^3/uL (0.0-0.1); Basophils % 0.7 %; Eosinophils # 0.3 10^3/uL (0.0-0.8); Eosinophils % 2.1 %; Hemoglobin 16.6 g/dL (11.7-16.6); Mean Corpuscular HGB Conc 32.5 g/dL (30.0-36.0); Mean Corpuscular Hemoglobin 27.7 pg (28.0-34.0); Mean Platelet Volume 9.3 fL (7.4-10.4); Monocytes # 0.8 10^3/uL (0.2-0.9); Monocytes % 6.2 %; Neutrophils # 7.95 10^3/uL (1.8-7.7); Neutrophils % 65.4 %; Nucleated Red Blood Cells % 0 %; Platelet Count 238 10^3/cmm (130-400); Red Cell Distribution Width 13.2 % (12.1-15.1); White Blood Count 12.1 10^3/uL (4.0-10.0)
[2022-07-28 14:39] VITALS: BP 138/86; PULSE 72; RESP 14; O2SAT 95
[2022-07-28 14:51] LABS: Alanine Aminotransferase 24 U/L (0-41); Albumin Level 3.7 g/dL (3.5-5.2); Alkaline Phosphatase 92 U/L (40-130); Aspartate Amino Transferase 19 U/L (0-40); Blood Urea Nitrogen 16 mg/dL (6-20); Calcium 8.8 mg/dL (8.5-10.5); Carbon Dioxide 21 mmol/L (22-29); Chloride 101 mmol/L (98-107); Glomerular Filtration Rate 103.6 mL/min (90-130); Glucose 85 mg/dL (65-115); Osmolality Calculated 278 mOsm/kg (285-295); Sodium 134 mmol/L (136-145); Total Bilirubin 0.4 mg/dL (0.15-1.2); Total Protein 6.7 g/dL (6.6-8.7)
[2022-07-28 14:55] LABS: Troponin(5th) Baseline 9 ng/L (0-15)
[2022-07-28 15:55] VITALS: BP 130/75; PULSE 74; RESP 16; O2SAT 92
--- NOTE | 2022-07-28 16:13 | ECG_ITS ---
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 Measurements Intervals [place] Rate: 71 P: 25 CT: 185 QRS: 54 QRSD: 91 T: 74 QT: 398 QTc: 433 Interpretive Statements SINUS RHYTHM Compared to ECG 10/28/2019 16:43:49 Intraventricular conduction delay no longer present Electronically Signed On 07-29-2022 7:51:52 CDT by Armando Walker M.D. [email or web address] surgical [email or web address] children's [email or web address] [email or web address]/[id number]
[2022-07-28 16:35] LABS: Troponin 5 2HR 8.63 ng/L (0-15)
[2022-07-28 16:44] LABS: Troponin 5 2HR Delta -0.37 ABS# (0-10)
== END 2022-07-28 18:04 | disposition home or self-care (01) ==
PROVIDERS: Emergency Provider Family Medicine; PCP Family Medicine
DX: R07.9 Chest pain, unspecified (principal); F41.9 Anxiety disorder, unspecified; I10 Essential (primary) hypertension; E78.5 Hyperlipidemia, unspecified; F17.210 Nicotine dependence, cigarettes, uncomplicated; F17.220 Nicotine dependence, chewing tobacco, uncomplicated
CPT/HCPCS: 36415; 71045; 80053; 84484; 85025; 93005; 96374; 96375; 99285; J2270; J2405

== ENCOUNTER 2022-12-27 06:30 | Outpatient (CLI) | payer OTHER, SELFPAY ==
--- NOTE | 2022-12-27 06:45 | USCV_ITS ---
Sravan Gipson Age: 47 Gender: M : 1975 Exam Date: 12/27/2022 06:37 Ordering Phys: Mily Gonzalez MD ([email or web address]) Technologist: Madeline Singh Exam Location: [facility] Indication: CHEST PAIN BP: 127 / 90 HR: 76 Rhythm: Sinus Technical Quality: Adequate MEASUREMENTS (Male / Female) Normal Values 2D ECHO LV Diastolic Diameter PLAX 2.6 cm 4.2 - 5.9 / 3.9 - 5.3 cm LV Systolic Diameter PLAX 1.8 cm LV Chamber Size 2.2 cm IVS Diastolic Thickness 1.2 cm 0.6 - 1.0 / 0.6 - 0.9 cm IVS Systolic Thickness 1.5 cm LVPW Diastolic Thickness 1.5 cm 0.6 - 1.0 / 0.6 - 0.9 cm LVPW Systolic Thickness 2.2 cm RV Chamber Size 3.1 cm LVOT Diameter 2.0 cm LV Ejection Fraction 2D Teich 59.3 % LV Ejection Fraction MOD 2C 56.5 % LV Ejection Fraction 2C AL 63.5 % LA Diameter 3.4 cm LA Width 3.2 cm LA Height 4.0 cm RA Width 4.0 cm RA Height 4.1 cm Aorta at Sinotubular Diameter 3.6 cm IVC Diameter 2.1 cm M-MODE Aortic Annulus Diameter 3.6 cm LA Ao Ratio MM 1.1 MV E Point Septal Separation 0.5 cm DOPPLER AV Peak Velocity 130.0 cm/s LVOT Peak Velocity 86.0 cm/s AV Area Cont Eq vti 2.1 cm squared AV Area Cont Eq pk 2.2 cm squared MV Area PHT 3.7 cm squared Mitral E to A Ratio 1.0 MV E' Velocity 38.5 cm/s Mitral E to MV E' Ratio 7.5 Mitral E to LV E' Lateral Ratio 7.1 Mitral E to LV E' Septal Ratio 7.9 TR Peak Velocity 101.4 cm/s TR Peak Gradient 4.1 mmHg TR Mean Velocity 75.5 cm/s TR Mean Gradient 2.6 mmHg TR Velocity Time Integral 23.9 cm TV Peak E Velocity 49.0 cm/s Right Atrial Pressure 3.0 mmHg Pulmonary Artery Systolic Pressu 7.1 mmHg RV Acceleration Time 0.1 s RV Ejection Time 0.3 s RV AcT/ET 0.5 FINDINGS Left Ventricle Normal left ventricular size, systolic function and wall thickness, with no regional wall motion abnormalities. Left ventricular ejection fraction is estimated at 65 %. Normal diastolic function. Right Ventricle Normal right ventricular size and systolic function. Right ventricular systolic pressure 7.1 mmHg. Right Atrium Normal right atrial size. Left Atrium Normal left atrial size. Mitral Valve Structurally normal mitral valve. No mitral valve stenosis. No mitral valve regurgitation. Aortic Valve Probably trileaflet aortic valve. No aortic valve stenosis. No aortic valve regurgitation. Tricuspid Valve Structurally normal tricuspid valve. Pulmonic Valve Pulmonic valve not well visualized. No pulmonary valve stenosis. Pericardium No pericardial effusion. Aorta Normal size aortic root and proximal ascending aorta. IVC Inferior vena cava not visualized. CONCLUSIONS 1. Normal left ventricular size, systolic function and wall thickness, with no regional wall motion abnormalities. Left ventricular ejection fraction is estimated at 65 %. Normal diastolic function. 2. No significant valvular abnormality. 3. No significant change when compared to study dated 09/17/2019. Mily Gonzalez MD (Electronically Signed) Final Date: 27 December 2022 17:29 S
== END 2022-12-27 06:31 | disposition home or self-care (01) ==
LOC: RAD 06:30
PROVIDERS: PCP Family Medicine; Visit Provider Internal Medicine Cardiovascular Disease
DX: R06.00 Dyspnea, unspecified (principal); R06.02 Shortness of breath; R07.9 Chest pain, unspecified
CPT/HCPCS: 93306

== ENCOUNTER → 2023-01-01 08:14 | Outpatient (BNVA) | payer OTHER, SELFPAY | PROVIDERS: PCP Family Medicine; Visit Provider Family Medicine | DX: I10 Essential (primary) hypertension (principal); R35.1 Nocturia; R05.9 Cough, unspecified; R50.9 Fever, unspecified; R68.89 Other general symptoms and signs; R53.83 Other fatigue; M54.6 Pain in thoracic spine; R60.0 Localized edema | CPT/HCPCS: 80053; 80061; 82043; 84153; 84403; 84443; 85025; 87400; 87426 ==

== ENCOUNTER 2023-01-09 08:41 | Outpatient (CLI) | payer OTHER, SELFPAY ==
--- NOTE | 2023-01-09 | ECG_ITS ---
[facility] Test Date: 2023-01-09 Pat Name: Sravan Gipson Department: Room: Gender: Male Per Diem Registered Nurse: Katjaberta WeemsPreston : 1975 Requested By: Mily Gonzalez Order Number: [id number] Ayo MD: Mily Gonzalez M.D. Interpretive Statements NAME OF STUDY: LEXISCAN SESTAMIBI STRESS TEST INDICATION: Chest Pain PROCEDURE: At the baseline, the blood pressure was 139/87 mmHg with a heart rate of 76 beats per min. The electrocardiogram showed sinus rhythm, normal axis with normal ST and T's. ??? The Lexiscan was infused over a period of 20 seconds. A total of 0.4 milligrams of Lexiscan was infused. The stress phase was continued for a total of 5 minutes. Heart rate at the end of the stress phase was 90 bpm with a blood pressure of 119/86 mmHg. The EKG at the peak infusion revealed sinus rhythm at 93 bpm with no significant ST-T wave changes. Study was terminated due to protocol completion. ??? Sestamibi was injected 20 seconds after the Lexiscan infusion. ??? Blood pressure at the end of the recovery phase was 121/87 mmHg with a heart rate of 82 beats per minute. ??? CONCLUSION: 1. Normal EKG response to LexiScan infusion. 2. No LexiScan induced chest pain or cardiac arrhythmia. 3. Normal blood pressure and heart rate response. 4. Sestamibi/sestamibi perfusion scan pending; see separate report. Electronically Signed On 01-15-2023 10:53:24 TAR HEAT EXCHANGER CLEANER by Mily Gonzalez M.D. [id number]
--- NOTE | 2023-01-09 08:00 | NMCV_ITS ---
[place] perf SPECT r/s* [id number] Sravan Gipson Age: 47 Gender: M : 1975 Exam Date: 01/09/2023 08:50 Ordering Phys: Mily Gonzalez MD ([email or web address]) Technologist: DIEGO Pedraza Exam Location: [facility] Indications: CHEST PAIN, SHORTNESS OF BREATH STRESS TEST Please see separate stress test report in [facility] for full findings IMAGE PROTOCOL Rest/Stress 1 Lexiscan Day Radiopharmaceutical Dose (mCi) Administration Site Administered by Rest: Tc-99m 10.8 IV DIEGO Caruso Sestamibi Stress:Tc-99m 33.0 IV DIEGO Caruso Sestamibi Rest: 09-Jan-2023 60 Discovery 630 Stress: 09-Jan-2023 30 Discovery 630 0.4mg Lexiscan. Images obtained in supine and prone position. SPECT RESULTS Technical Quality: Excellent Raw Data Analysis: Normal Image Corrections: No attenuation or motion correction applied Summed Stress Score: 5 Summed Rest Score: 6 Summed Difference Score: 1 PERFUSION FINDINGS Small size perfusion abnormality of mild severity of mid to apical inferior, mid to apical inferolateral gold on rest images with improved tracer uptake on stress images. This is suggestive of attenuation artifact. FUNCTIONAL RESULTS (calculated via Gated SPECT) Stress Image LV EF (%): 77 Stress EDV (mL):120 TID: 0.97 Stress ESV (mL):28 FUNCTIONAL FINDINGS: The left ventricle is normal in size. Transient Ischemia Dilatation of 0.97. The left ventricular ejection fraction is normal with a value of 77%. There is normal left ventricular wall thickening. No regional wall motion abnormality. IMPRESSIONS 1. Myocardial perfusion imaging is normal. Attenuation artifact noted in mid to apical inferior and inferolateral gold. 2. Overall left ventricular systolic function is normal without regional wall motion abnormalities, LVEF=77%. 3. No EKG changes with Lexiscan infusion. Refer to separate report for details. 4. Scan indicates low risk for cardiac events. Mily Gonzalez MD (Electronically Signed) Final Date: 15 January 2023 10:51 S
[2023-01-09 08:38] VITALS: BMI 41.1
[2023-01-09] MEDS: regadenoson 0.4 Mg/5 ml Syringe IVP (09:28)
[2023-01-09] MEDS: ondansetron 2 mg/ML SDV 2 mL 4 MG IVP (09:37)
[2023-01-09 09:38] VITALS: BP 121/87; PULSE 83
== END 2023-01-09 08:42 | disposition home or self-care (01) ==
LOC: CDL 08:42
PROVIDERS: PCP Family Medicine; Visit Provider Internal Medicine Cardiovascular Disease
DX: R07.9 Chest pain, unspecified (principal); R06.02 Shortness of breath
CPT/HCPCS: 36415; 78452; 93017; 96374; 96375; A9500; J2405; J2785

== ENCOUNTER → 2023-01-30 10:16 | Outpatient (BNVA) | payer OTHER, SELFPAY | PROVIDERS: PCP Family Medicine; Visit Provider Family Medicine | DX: R60.0 Localized edema (principal); F41.1 Generalized anxiety disorder | CPT/HCPCS: 80048 ==

== ENCOUNTER → 2023-04-02 08:41 | Outpatient (BNVA) | payer OTHER, SELFPAY | PROVIDERS: PCP Family Medicine; Visit Provider Family Medicine | DX: R79.89 Other specified abnormal findings of blood chemistry (principal); Z13.6 Encounter for screening for cardiovascular disorders; E66.01 Morbid (severe) obesity due to excess calories; R73.9 Hyperglycemia, unspecified | CPT/HCPCS: 83036; 84403; 85025 ==

== ENCOUNTER → 2023-08-21 08:44 | Outpatient (BNVA) | payer OTHER, SELFPAY | PROVIDERS: PCP Family Medicine; Visit Provider Family Medicine | DX: R73.03 Prediabetes (principal) | CPT/HCPCS: 80053; 83036; 84403; 84439; 84443 ==

== ENCOUNTER → 2024-04-22 11:42 | Outpatient (BNVA) | payer OTHER, SELFPAY | PROVIDERS: PCP Family Medicine; Visit Provider Family Medicine | DX: R73.03 Prediabetes (principal) | CPT/HCPCS: 80053; 83036 ==

== ENCOUNTER → 2024-04-25 10:50 | Outpatient (BNVA) | payer OTHER, SELFPAY | PROVIDERS: PCP Family Medicine; Visit Provider Family Medicine | DX: E87.1 Hypo-osmolality and hyponatremia (principal) | CPT/HCPCS: 80048 ==

== ENCOUNTER 2024-04-30 06:18 | Emergency (ER) | payer OTHER, SELFPAY ==
[2024-04-30] VITALS (8 sets, daily range): BP systolic 105–151; BP diastolic 50–94; PULSE 71–101; RESP 18; TEMP 36.4; O2SAT 94–99; BMI 42.2
--- NOTE | 2024-04-30 06:29 | ECG_ITS ---
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 Measurements Intervals [place] Rate: 81 P: 33 [place]: 183 QRS: 59 QRSD: 87 T: 66 QT: 349 QTc: 407 Interpretive Statements SINUS RHYTHM Compared to ECG 07/28/2022 16:13:28 No significant changes Electronically Signed On 04-30-2024 22:03:27 CDT by Bonny Ding M.D. [id number]
--- NOTE | 2024-04-30 06:31 | ED_ITS ---
HPI - Dizziness 2 General: Chief Complaint: Dizziness Stated Complaint: dizzines Time Seen by Provider: 04/30/24 06:27 History of Present Illness: HPI Narrative: 48-year-old male presents emergency room with complaints of generally not feeling well. 14 of this above he had routine lab work drawn had a sodium of 116 and potassium of 3.0. He is on multiple diuretics including metolazone and Bumex for chronic edema. He shortly after he had that blood work drawn he went to [facility] while he was there he was briefly hospitalized he reports they treated him for his hyponatremia. He was discharged reportedly with a sodium of 128. He has not been taking his diuretics. He returns today because he is lightheaded and dizzy. He denies any chest or abdominal pain no hematuria. Not currently taking his diuretics. Associated symptoms: Reports malaise; Denies chest pain or chills Related Data Previous Rx's ?Medication ?Instructions ?Recorded lisinopril 10 mg tablet 5 mg (1/2 x 10 mg) PO BEDTIM E #90 08/21/23 tabs pantoprazole 40 mg tablet,delayed 40 mg PO DAILY #90 t abs 09/24/23 release propranolol 20 mg tablet 20 mg PO BID #180 tabs 11/07 atorvastatin 20 mg tablet 20 mg PO DAILY #90 tabs 11/06 metformin 500 mg tablet,extended 500 mg PO DAILY #90 t abs 04/14/24 release 24 hr metolazone 5 mg tablet 10 mg (2 x 5 mg) PO DAILY #3 0 tabs 04/14/24 bumetanide 2 mg tablet 2 mg PO QDAY #30 tabs bupropion HCl 300 mg 24 hr tablet, 300 mg PO QAM #60 t abs 04/22/24 extended release potassium chloride 20 mEq See Rx Instructions PO DAILY #30 04/22/24 tablet,extended release tabs ciprofloxacin HCl 500 mg tablet 500 mg PO BID #20 tabs 04/30/24 (Cipro) tamsulosin 0.4 mg capsule 0.4 mg PO DAILY #30 caps Allergies Allergy/AdvReac Type Severity Reaction Status Date / Time No Known Allergies Allergy Verified 04/30/24 06:26 Review of Systems 2 Const: Reports: fatigue and malaise; Denies: fever(s) or chills Card: Denies: chest pain Resp: Denies: dyspnea GI: Denies: abdominal pain : Denies: dysuria, urinary frequency or urinary urgency Musc: Denies: neck pain or back pain Skin/Breast: Denies: rash PFSH ED 2 PFSH: Medical History Coarse tremors Prediabetes Rectus diastasis Obesity (BMI 30-39.9) ILA (generalized anxiety disorder) Obstructive sleep apnea Nicotine dependence, chewing tobacco, with unspecified nicotine-induced disorders Low testosterone level in male GERD (gastroesophageal reflux disease) Carpal tunnel syndrome, right Fracture of fifth metacarpal bone of right hand Asthma Benign essential HTN Dyslipidemia Surgical History History of umbilical hernia repair (09/24/20) History of repair of ACL replacement- 2017 History of appendectomy open Hx laparoscopic cholecystectomy Family History Grandmother Myocardial infarction Grandfather Myocardial infarction Other CAD (coronary artery disease) Diabetes Social History Smoking and tobacco/nicotine status: never used tobacco/nicotine Second hand smoke exposure: Yes Alcohol intake: current Alcohol intake frequency: holidays/special occasions only Substance/Drug Use: never Lives independently: Yes Household members: spouse Marital status: Current occupational status: employed Current occupation: [employer] Current occupational exposures/hazards: Yes Do you think of yourself as: Straight/Heterosexual Current gender identity: Male Physical Exam 2 Const: COMMON NORMALS: no acute distress GENERAL APPEARANCE: cooperative and comfortable ORIENTATION/CONSCIOUSNESS: Yes awake, Yes oriented to person, Yes oriented to place and Yes oriented to time HENMT: COMMON NORMALS: normocephalic, atraumatic and hearing grossly normal bilaterally HEAD & SCALP: normocephalic and atraumatic Resp: COMMON NORMALS: normal respiratory effort, No retractions, No use of accessory muscles and clear to auscultation bilaterally AUSCULTATION: clear to auscultation bilaterally Cardio: COMMON NORMALS: regular rate, regular rhythm and No murmurs present (Cardio) RATE: regular rate RHYTHM: regular rhythm GI: COMMON NORMALS: Soft to palpation and No hepatosplenomegaly present A USCULTATION: Yes normoactive bowel sounds PALPATION: Yes Soft to palpation, No Tenderness to palpation present (GI), No Guarding due to palpation present (GI) and Yes No hepatosplenomegaly present Extremity: COMMON NORMALS: normal to inspection, capillary refill normal, no clubbing, cyanosis or edema, no calf tenderness and no pedal edema Neuro: SENSORIUM/ORIENTATION: Yes oriented to person, Yes oriented to place and Yes oriented to time Skin: COMMON NORMALS: no rashes or lesions noted GENERAL SKIN EXAM: no rashes or lesions noted Course 2 Vital Signs: Vital signs: Vital Signs Temperature 97.6 F 04/30/24 06:21 Pulse Rate 82 04/30/24 12:13 Respiratory Rate 18 04/30/24 06:26 Blood Pressure 107/50 04/30/24 12:13 Pulse Oximetry 96 04/30/24 12:13 Oxygen Delivery Me thod Room Air 04/30/24 06:21 MDM - Dizziness Medical Decision Making Patient does not have hyponatremia at this time but does have significant urinary retention. Kevin catheter placed patient had over thousand out. Discharged home with a leg bag started on tamsulosin alone and refer to urology. Additionally patient does have signs of a cystitis with 50-100 white blood cells per high-power field started on ciprofloxacin. Lab Data 04/30/24 06:25 04/30/24 06:25 Radiology Impressions Chest X-Ray 04/30/24 07:38 IMPRESSION: No acute cardiopulmonary findings. Abdomen/Pelvis CT 04/30/24 09:47 IMPRESSION: 1. Massively distended urinary bladder extends to the level of the umbilicus. 2. Change in attenuation at the base of the urinary bladder extending to the LEFT close to the ureteral orifice. Change in attenuation may be related to blood products, sediment or neoplasm. Cystoscopy may be necessary. 3. No renal obstruction. 4. Prior cholecystectomy. 5. Hepatomegaly and hepatic steatosis. 6. No colitis. 7. No ascites or adenopathy. Laboratory Results WBC 12.90 10^3/uL (3.29-11.43) H 04/30/24 06:25 RBC 4.85 10^6/uL (3.85-5.65) 04/30/24 06:25 Hgb 13.90 g/dL (11.27-16.99) 04/30/24 06:25 Hct 41.3 % (37-53) 04/30/24 06:25 MCV 85.2 fl (82-101) 04/30/24 06:25 MCH 28.7 pg (27-33) 04/30/24 06:25 MCHC 33.7 g/dL (30-55) 04/30/24 06:25 RDW 13.6 % (12.1-15.1) 04/30/24 06:25 Plt Count 266 10^3/cmm (157-399) 04/30/24 06:25 MPV 8.4 fL (7.4-10.4) 04/30/24 06:25 Neut % (Auto) 67.6 % 04/30/24 06:25 Lymph % (Auto) 19.8 % 04/30/24 06:25 [place] % (Auto) 7.1 % 04/30/24 06:25 Eos % (Auto) 3.6 % 04/30/24 06:25 Baso % (Auto) 0.6 % 04/30/24 06:25 Neut # (Auto) 8.72 10^3/uL (1.8-7.7) H 04/30/24 06:25 Lymph # (Auto) 2.6 10^3/uL (0.8-4.8) 04/30/24 06:25 [place] # (Auto) 0.9 10^3/uL (0.2-0.9) 04/30/24 06:25 Eos # (Auto) 0.5 10^3/uL (0.0-0.8) 04/30/24 06:25 Baso # (Auto) 0.1 10^3/uL (0.0-0.1) 04/30/24 06:25 Nucleated RBC % (auto) 0 % 04/30/24 06: Nucleated RBCs # 0.0 /100WBC 04/30/24 06:25 Specimen Type Arterial 04/30/24 09:34 Sample Site Radial, right 04/30/24 09:34 ABG pH 7.43 (7.35-7.45) 04/30/24 09:34 ABG pCO2 43.0 mmHg (35-45) 04/30/24 09:34 ABG pO2 74.2 mmHg (80.0-100.0) L 04/30/24 09:34 ABG PO2/FiO2 Ratio 353 04/30/24 09:34 ABG HCO3 28.5 mmol/L (22-26) H 04/30/24 09:34 ABG O2 Saturation 96.2 04/30/24 09:34 ABG Base Excess 3.7 mmol/L (-2.0-2.0) H 04/30/24 09:34 Ciro Test Pos 04/30/24 09:34 A-a O2 Gradient 2.5 mmHg (5-10) L 04/30/24 09:34 Hematocrit 42.3 % (42-52) 04/30/24 09:34 Hgb O2 Saturation 94.4 % (95-100) L 04/30/24 09:34 Carboxyhemoglobin 0.8 %THgb (0.4-20.1) 04/30/24 09:34 Methemoglobin 1.1 % (0.4-1.5) 04/30/24 09:34 Total Hemoglobin 13.8 g/dL (14-18) L 04/30/24 09:34 Sodium 131.0 mmol/L (131-143) 04/30/24 09:34 Potassium 3.9 mmol/L (3.5-5.0) 04/30/24 09:34 Glucose 109.0 mg/dL (70-115) 04/30/24 09:34 Ionized Calcium 1.2 mmol/L (1.1-1.4) 04/30/24 09:34 O2 Delivery Device Room air 04/30/24 09:34 FiO2 21.0 % 04/30/24 09:34 Insulation Foreman ID Amh 04/30/24 09:34 Sodium 132 mmol/L (136-145) L 04/30/24 06:25 Potassium 4.5 mmol/L (3.5-5.1) 04/30/24 06:25 Chloride 95 mmol/L (98-107) L 04/30/24 06:25 Carbon Dioxide 27 mmol/L (22-29) 04/30/24 06:25 Anion Gap 14.5 (5-19) 04/30/24 06:25 BUN 14 mg/dL (6-20) 04/30/24 06:25 Creatinine 1.0 mg/dL (0.7-1.2) 04/30/24 06:25 GFR Calculation 79.8 mL/min (90-130) L 04/30/24 06:25 Glucose 163 mg/dL (65-115) H 04/30/24 06:25 Calculated Osmolality 278 mOsm/kg (285-295) L 04/30/24 06:25 Calcium 8.4 mg/dL (8.5-10.5) L 04/30/24 06:25 Magnesium 1.9 mg/dL (1.7-2.3) 04/30/24 06:25 Total Bilirubin 0.2 mg/dL (0.15-1.2) 04/30/24 06:25 AST 21 U/L (0-40) 04/30/24 06:25 ALT 27 U/L (0-41) 04/30/24 06:25 Alkaline Phosphatase 97 U/L (40-130) 04/30/24 06:25 Creatine Kinase 242 U/L (39-308) 04/30/24 06:25 Troponin T Baseline 16 ng/L (0-15) H 04/30/24 06:25 Troponin T 120 Minute 12.87 ng/L (0-15) 04/30/24 08:36 Delta Troponin T -3.13 ABS# (0-10) L 04/30/24 08:36 Total Protein 6.0 g/dL (6.6-8.7) L 04/30/24 06:25 Albumin 3.4 g/dL (3.5-5.2) L 04/30/24 06:25 Globulin 2.6 g/dL (1.3-4.6) 04/30/24 06:25 Lipase 47 U/L (13-60) 04/30/24 06:25 Urine Color Yellow (Yellow) 04/30/24 07:25 Urine Appearance Cloudy (CLEAR) A 04/30/24 07:25 Urine pH 6.5 (5-7) 04/30/24 07:25 Ur Specific [place] 1.014 (1.005-1.030) 04/30/24 07:25 Urine Protein Negative (Negative) 04/30/24 07:25 Urine Glucose (UA) Negative (Normal) 04/30/24 07:25 Urine Ketones Negative (Negative) 04/30/24 07:25 Urine Blood Trace (Negative) A 04/30/24 07:25 Urine Nitrate Negative (Negative) 04/30/24 07:25 Urine Bilirubin Negative (Negative) 04/30/24 07:25 Urine Urobilinogen 1.0 mg/dL (Negative) 04/30/24 07:25 Ur Leukocyte Esterase 2+ (Negative) A 04/30/24 07:25 Urine RBC 3-5 /hpf (0-2) 04/30/24 07:25 Urine WBC 51-100 /hpf (0-5) H 04/30/24 07:25 Ur Squamous Epith Cells 0-5 /hpf (0-5) 04/30/24 07:25 Amorphous Sediment Not Reportable 04/30/24 07:25 Urine Bacteria None seen /hpf (NONE) 04/30/24 07:25 Hyaline Casts 0.40 /lpf 04/30/24 07:25 Influenza A (PCR) Negative (Negative) 04/30/24 07:50 Influenza Type B (PCR) Negative (Negative) 04/30/24 07:50 RSV (PCR) Negative (Negative) 04/30/24 07:50 SARS-CoV-2 (PCR) Negative (Negative) 04/30/24 07:50 All radiology interpretation(s) finalized by discharge Discharge Plan Discharge Patient Disposition: Home Clinical Impression: Acute urinary retention, Cystitis Condition: Stable Prescriptions: New ciprofloxacin HCl [Cipro] 500 mg tablet 500 mg PO BID Qty: 20 0RF tamsulosin 0.4 mg capsule 0.4 mg PO DAILY Qty: 30 0RF No Action lisinopril 10 mg tablet 5 mg PO BEDTIME Qty: 90 1RF pantoprazole 40 mg tablet,delayed release (DR/EC) 40 mg PO DAILY Qty: 90 2RF metolazone 5 mg tablet 10 mg PO DAILY Qty: 30 1RF metformin 500 mg tablet extended release 24 hr 500 mg PO DAILY Qty: 90 1RF bupropion HCl 300 mg tablet extended release 24 hr 300 mg PO QAM Qty: 60 1RF bumetanide 2 mg tablet 2 mg PO QDAY Qty: 30 1RF propranolol 20 mg tablet 20 mg PO BID Qty: 180 1RF atorvastatin 20 mg tablet 20 mg PO DAILY Qty: 90 1RF potassium chloride 20 mEq tablet extended release See Rx Instructions PO DAILY Qty: 30 1RF Rx Instructions: take TWO tablets TWICE daily x 3 days, then ONE tablets in AM there after; Discharge Orders: Discharge ED (Routine); Ordered 04/30/24 Ordered By: Juan mAaral Referrals: Geovanni Ceballos MD [Primary Care Provider] - Discharge Diet: Usual diet Discharge Activity: Resume usual activity Patient Instructions: Opioid Safety, Pain Management Activity Restrictions/Additional Instructions: Thank you for choosing [facility] for your healthcare needs today. It is very important that you follow up as instructed or that you return to the Emergency Department should you have concerns or if your condition changes or worsens in any way. You were seen in the emergency room with complaints of dizziness generally not feeling well. Your electrolytes are improved from previous however you do have a bladder infection and have significant urinary retention which I think is contributing to the generalized not feeling well and to your dizziness. The Kevin catheter was placed to drain bladder. Recommend you start on antibiotics 1 pill twice a day for 10 days additionally the Kevin will need to stay in place until you follow-up with urology. Case management will make arrangements for you to follow-up with urologist we will start you on tamsulosin alone to improve your ability to empty your bladder spontaneously. Print Language: Nigerian Coding Level of Care Code ED Ballistic Expert for Tolu Wayne
[2024-04-30 06:37] LABS: Basophils # 0.1 10^3/uL (0.0-0.1); Basophils % 0.6 %; Eosinophils # 0.5 10^3/uL (0.0-0.8); Eosinophils % 3.6 %; Hematocrit 41.3 % (37-53); Lymphocytes # 2.6 10^3/uL (0.8-4.8); Lymphocytes % 19.8 %; Mean Corpuscular HGB Conc 33.7 g/dL (30-55); Mean Corpuscular Hemoglobin 28.7 pg (27-33); Mean Corpuscular Volume 85.2 fl (82-101); Mean Platelet Volume 8.4 fL (7.4-10.4); Monocytes # 0.9 10^3/uL (0.2-0.9); Monocytes % 7.1 %; Neutrophils # 8.72 10^3/uL (1.8-7.7); Neutrophils % 67.6 %; Nucleated Red Blood Cells % 0 %; Platelet Count 266 10^3/cmm (157-399); Red Blood Count 4.85 10^6/uL (3.85-5.65); Red Cell Distribution Width 13.6 % (12.1-15.1)
[2024-04-30 06:58] LABS: Alanine Aminotransferase 27 U/L (0-41); Albumin Level 3.4 g/dL (3.5-5.2); Alkaline Phosphatase 97 U/L (40-130); Anion Gap 14.5 (5-19); Aspartate Amino Transferase 21 U/L (0-40); Blood Urea Nitrogen 14 mg/dL (6-20); Calcium 8.4 mg/dL (8.5-10.5); Carbon Dioxide 27 mmol/L (22-29); Chloride 95 mmol/L (98-107); Creatine Phosphokinase 242 U/L (39-308); Creatinine Clr Calc Pharmacy 135.4444; Globulin 2.6 g/dL (1.3-4.6); Glomerular Filtration Rate 79.8 mL/min (90-130); Glucose 163 mg/dL (65-115); Lipase 47 U/L (13-60); Magnesium 1.9 mg/dL (1.7-2.3); Osmolality Calculated 278 mOsm/kg (285-295); Potassium 4.5 mmol/L (3.5-5.1); Sodium 132 mmol/L (136-145); Total Bilirubin 0.2 mg/dL (0.15-1.2)
--- NOTE | 2024-04-30 07:38 | XRR_ITS ---
PROCEDURE INFORMATION: Exam: XR Chest Exam date and time: 04/30/2024 7:42 AM Age: 48 years old Clinical indication: Cough and dyspnea; Additional info: Dyspnea/cough TECHNIQUE: Imaging protocol: Radiologic exam of the chest. Views: 1 view. COMPARISON: CR XR chest 1V [id number] 07/28/2022 2:33 PM FINDINGS: Lungs: Left basilar atelectasis/scarring similar to prior. No consolidation. Pleural spaces: Unremarkable. No pleural effusion. No pneumothorax. Heart/Mediastinum: Unremarkable. No cardiomegaly. Bones/joints: Unremarkable. XR/XR chest 1V portable [id number] IMPRESSION: No acute cardiopulmonary findings.
--- NOTE | 2024-04-30 07:38 | ECG_ITS ---
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 Measurements Intervals [place] Rate: 89 P: 52 SD: 187 QRS: 70 QRSD: 96 T: 68 QT: 347 QTc: 423 Interpretive Statements SINUS RHYTHM Compared to ECG 07/28/2022 16:13:28 No significant changes Electronically Signed On 04-30-2024 22:04:57 CDT by Bonny Ding M.D. [email or web address]
[2024-04-30 07:57] LABS: Bilirubin Urine Negative (Negative); Blood Urine Trace (Negative); Glucose Urine UA Negative (Normal); Ketones Urine Negative (Negative); Leukocyte Esterase Urine 2+ (Negative); Nitrate Urine Negative (Negative); Protein Urine Negative (Negative); Specific Gravity, Urine 1.014 (1.005-1.030); Urine Appearance Cloudy (CLEAR); Urine Color Yellow (Yellow); pH Urine 6.5 (5-7)
[2024-04-30 08:00] LABS: Add Urine Microscopic? YES; Bacteria Urine None Seen /hpf; Squamous Epithelial Cell Urine 0-5 /hpf (0-5); WBC Urine 51-100 /hpf (0-5)
[2024-04-30 08:05] LABS: Add Urine Culture? Yes
[2024-04-30 08:09] LABS: Troponin(5th) Baseline 16 ng/L (0-15)
[2024-04-30 08:37] LABS: Influenza A NEGATIVE (Negative); Influenza B NEGATIVE (Negative); Respiratory Syncytial Virus Ce NEGATIVE (Negative); SARS-CoV-2 PCR NEGATIVE (Negative)
[2024-04-30 09:04] LABS: Troponin 5 2HR 12.87 ng/L (0-15)
[2024-04-30 09:08] LABS: Troponin 5 2HR Delta -3.13 ABS# (0-10)
--- NOTE | 2024-04-30 09:38 | ECG_ITS ---
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 Measurements Intervals [place] Rate: 77 P: 26 [place]: 188 QRS: 53 QRSD: 112 T: 55 QT: 369 QTc: 418 Interpretive Statements SINUS RHYTHM MODERATE INTRAVENTRICULAR CONDUCTION DELAY [110+ ms QRS DURATION] Compared to ECG 04/30/2024 07:49:57 Intraventricular conduction delay now present Electronically Signed On 04-30-2024 22:16:16 CDT by Bonny Ding M.D. [email or web address]
[2024-04-30 09:45] LABS: ABG PH Result 7.43 (7.35-7.45); Alveolar-Arterial Oxygen Gradi 2.5 mmHg (5-10); Arterial Blood Gas Hematocrit 42.3 % (42-52); Base Excess ABG 3.7 mmol/L (-2.0-2.0); Blood Gas Allen Test Pos; Blood Gas Operator Identificat AMH; Blood Gas Sample Site Radial, right; Blood Gas Sample Type Arterial; Carboxyhemoglobin 0.8 %THgb (0.4-20.1); HCO3 ABG 28.5 mmol/L (22-26); HGB O2 Sat 94.4 % (95-100); Ionized Calcium Level - ABG 1.2 mmol/L (1.1-1.4); Methemoglobin 1.1 % (0.4-1.5); Oxygen Device ROOM AIR; Oxygen Saturation ABG 96.2; PO2 ABG 74.2 mmHg (80.0-100.0); PO2 FiO2 Ratio Arterial Blood 353; Potassium Level - ABG 3.9 mmol/L (3.5-5.0); Total Hemoglobin 13.8 g/dL (14-18)
--- NOTE | 2024-04-30 09:47 | CT_ITS ---
WS: [id number] CT ABDOMEN AND PELVIS NONCONTRAST HISTORY: flank pain TECHNIQUE: Imaging performed through the abdomen and pelvis. Coronal and sagittal reformats are submitted. All CT scans at [facility] use at least one of these dose optimization techniques: automated exposure control; mA and/or kV adjustment per patient size (includes targeted exams where dose is matched to clinical indication); or iterative reconstruction. DLP: 1864.83 mGy.cm COMPARISON: 03/30/2020 Lower thorax: Lung bases are clear. Visualized heart is normal. No hiatal hernia. Liver: Liver is mildly enlarged. Mild hepatic steatosis. No intrahepatic duct dilatation. Gallbladder: Prior cholecystectomy. Pancreas: Normal size and attenuation. Normal pancreatic duct. No pancreatitis or mass. Spleen: Normal. Adrenal glands: Normal. No mass. Right kidney: Normal size kidney with no mass or hydronephrosis. Left kidney: Normal size kidney with no mass or hydronephrosis. Aorta: Normal abdominal aorta, no aneurysm or atherosclerosis. No free fluid, intraperitoneal air or significant lymphadenopathy. GI tract: Normal appearance of the stomach and small bowel. Prior appendectomy. Mild diffuse constipation. No colitis. Abdominal wall: Diastases rectus. Umbilical hernia contains fat only. Pelvis: Massively distended urinary bladder. Length of the urinary bladder is 21 cm. Bladder extends to the level of the umbilicus. There is a very slight change in attenuation at the base of the urinary bladder. Slightly greater extension of this attenuation to the LEFT closely associated with the ureter orifice. There is no ureteral obstruction. Mild prostate gland enlargement. No adjacent lymph nodes. Osseous structures: Unremarkable. CT/CT kidney stone [id number] IMPRESSION: 1. Massively distended urinary bladder extends to the level of the umbilicus. 2. Change in attenuation at the base of the urinary bladder extending to the L EFT close to the ureteral orifice. Change in attenuation may be related to bloo d products, sediment or neoplasm. Cystoscopy may be necessary. 3. No renal obstruction. 4. Prior cholecystectomy. 5. Hepatomegaly and hepatic steatosis. 6. No colitis. 7. No ascites or adenopathy.
[2024-04-30] MEDS: cefTRIAXone 1,000 mg SDV 1000 MG IVP (10:03)
--- NOTE | 2024-05-01 16:12 | DCPLANNER ---
faxed referral to [facility]
== END 2024-04-30 12:16 | disposition home or self-care (01) ==
PROVIDERS: Emergency Provider Family Medicine; PCP Family Medicine
DX: R33.9 Retention of urine, unspecified (principal); N30.90 Cystitis, unspecified without hematuria; Z11.52 Encounter for screening for COVID-19; E78.5 Hyperlipidemia, unspecified; I10 Essential (primary) hypertension
CPT/HCPCS: 36415; 36600; 51702; 71045; 74176; 80051; 80053; 81001; 82330; 82550; 82805; 83690; 83735; 84484; 85025; 87040; 87086; 87637; 93005; 96374; 99285; J0696

== ENCOUNTER → 2024-05-13 15:49 | Outpatient (BNVA) | payer OTHER, SELFPAY | PROVIDERS: PCP Family Medicine; Visit Provider Family Medicine | DX: Z12.5 Encounter for screening for malignant neoplasm of prostate (principal) | CPT/HCPCS: 84153 ==

== ENCOUNTER → 2024-05-16 08:37 | Outpatient (BNVA) | payer OTHER, SELFPAY | PROVIDERS: PCP Family Medicine; Visit Provider Family Medicine | DX: E78.5 Hyperlipidemia, unspecified (principal); F41.1 Generalized anxiety disorder; I10 Essential (primary) hypertension; R33.8 Other retention of urine | CPT/HCPCS: 80053; 80061 ==

== ENCOUNTER 2024-06-16 14:04 | Emergency (ER) | payer OTHER, SELFPAY ==
[2024-06-16 14:06] VITALS: BP 117/74; PULSE 93; TEMP 36.4; O2SAT 95; BMI 41.1
[2024-06-16 14:36] LABS: Bacteria Urine 4+ /hpf; Hyaline Casts Urine 1.65 /lpf; Squamous Epithelial Cell Urine 0-5 /hpf (0-5); WBC Urine 51-100 /hpf (0-5)
[2024-06-16 14:38] LABS: Add Urine Microscopic? YES; Bilirubin Urine Neg (Negative); Blood Urine 2+ (Negative); Glucose Urine UA Norm (Normal); Ketones Urine Negative (Negative); Nitrate Urine Positive (Negative); Protein Urine Neg (Negative); Urine Appearance Slightly Cloudy (CLEAR); Urine Color Yellow (Yellow); Urobilinogen Urine Norm (Negative); pH Urine 6 (5-7)
[2024-06-16 14:39] LABS: Add Urine Culture? Yes; Leukocyte Esterase Urine 1+ (Negative)
--- NOTE | 2024-06-16 14:41 | ED_ITS ---
HPI - Male Genitourinary 2 General: Chief complaint: Urogenital-Male Stated complaint: cath not draining sent from urgent care Time Seen by Provider: 06/16/24 14:29 Source: patient Mode of arrival: ambulatory Limitations: no limitations History of Present Illness: Patient is a nice 48-year-old male here stating his French catheter is not draining well. French was placed approximately 6 weeks ago for acute urinary retention. He states he has an appointment with urology in [place] tomorrow for cystoscopy. Patient has not noticed any hematuria or clots. He was reportedly seen at a walk-in clinic prior to coming here and they deflated/readjusted the catheter without improvement. Complaint: other (french catheter not draining appropriately) Onset (ago): day(s) (today) Duration: constant Severity: moderate Relieving factors: none Exacerbating factors: other (frenhc catheter) Associated symptoms: Reports no associated symptoms; Deny nausea or vomiting Related Data Home Medications ?Medication ?Instructions ?Recorded ?Confirmed atorvastatin 20 mg tablet 20 mg PO QPM 06/16/24 Previous Rx's ?Medication ?Instructions ?Recorded pantoprazole 40 mg tablet,delayed 40 mg PO DAILY #90 t abs 09/24/23 release metformin 500 mg tablet,extended 500 mg PO DAILY #90 t abs 04/14/24 release 24 hr bupropion HCl 300 mg 24 hr tablet, 300 mg PO QAM #90 t abs 05/16/24 extended release citalopram 20 mg tablet 20 mg PO DAILY #90 tabs 06/06 lisinopril 5 mg tablet 5 mg PO BEDTIME #90 tabs 06/06 French Catheter Legbag and tubing #1 ea 05/22/24 supplie tamsulosin 0.4 mg capsule 0.4 mg PO DAILY #30 caps 12/06 ciprofloxacin HCl 500 mg tablet 500 mg PO Q12H #14 tab s 06/16/24 (Cipro) Allergies Allergy/AdvReac Type Severity Reaction Status Date / Time No Known Allergies Allergy Verified 06/16/24 14:11 Review of Systems 2 GI: Reports: abdominal pain (suprapubic pain); Denies: nausea, vomiting, diarrhea or change in bowel habits : Reports: other (french not draining well); Denies: flank pain Musc: Denies: back pain [facility] ED 2 PFSH: Medical History Coarse tremors Prediabetes Rectus diastasis Obesity (BMI 30-39.9) ILA (generalized anxiety disorder) Obstructive sleep apnea Nicotine dependence, chewing tobacco, with unspecified nicotine-induced disorders 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 Prado History of umbilical hernia repair (09/24/20) History of repair of ACL replacement- 2016 History of appendectomy open Hx laparoscopic cholecystectomy Family History Grandmother Myocardial infarction Grandfather Myocardial infarction Other CAD (coronary artery disease) Diabetes Social History Smoking and tobacco/nicotine status: never used tobacco/nicotine Second hand smoke exposure: Yes Alcohol intake: current Alcohol intake frequency: holidays/special occasions only Substance/Drug Use: never Lives independently: Yes Household members: spouse Marital status: Current occupational status: employed Current occupation: [employer] Current occupational exposures/hazards: Yes Do you think of yourself as: Straight/Heterosexual Current gender identity: Male Physical Exam 2 Const: COMMON NORMALS: no acute distress, no limitations, alert and well nourished GENERAL APPEARANCE: cooperative NUTRITIONAL APPEARANCE: obese morbidly obese (BMI 41.1) Resp: COMMON NORMALS: normal respiratory effort and clear to auscultation bilaterally AUSCULTATION: clear to auscultation bilaterally Cardio: COMMON NORMALS: regular rate and regular rhythm RATE: regular rate RHYTHM: regular rhythm : COMMON NORMALS: Yes no CVA tenderness BLADDER/KIDNEY EXAM: Yes no CVA tenderness OTHER: french catheter appears in place; approx 50cc light yellow clear colored urine in bag Back/Pelvis: COMMON NORMALS: no CVA tenderness Neuro: SENSORIUM/ORIENTATION: Yes alert Course 2 Vital Signs: Vital signs: Vital Signs Temperature 97.6 F 06/16/24 14:06 Pulse Rate 93 06/16/24 14:06 Blood Pressure 117/74 06/16/24 14:06 Pulse Oximetry 95 06/16/24 14:06 Oxygen Delivery Me thod Room Air 06/16/24 14:06 MDM - Male Medical Decision Making Patient with a complaint that his French catheter was not adequately draining. French catheter was repositioned and flushed by RN and is now draining appropriately. Patient reports significant improvement. Vital signs are stable. Blood work overall is nonactionable. UA with evidence for infection with a cloudy appearance, 2+ blood, positive nitrates, 1+ leukocyte esterase, 51-100 WBCs, 4+ bacteria. Patient will be placed on ciprofloxacin. Recommend he follow-up with urology as scheduled tomorrow. Medical Records I reviewed the patient's medical records. Lab Data I reviewed the patient's lab results. 06/16/24 14:47 06/16/24 14:47 Laboratory Results WBC 13.26 10^3/uL (3.29-11.43) H 06/16/24 14:47 RBC 5.38 10^6/uL (3.85-5.65) 06/16/24 14:47 Hgb 15.20 g/dL (11.27-16.99) 06/16/24 14:47 Hct 46.9 % (37-53) 06/16/24 14:47 MCV 87.2 fl (82-101) 06/16/24 14:47 MCH 28.3 pg (27-33) 06/16/24 14:47 MCHC 32.4 g/dL (30-55) 06/16/24 14:47 RDW 13.6 % (12.1-15.1) 06/16/24 14:47 Plt Count 236 10^3/cmm (157-399) 06/16/24 14:47 MPV 9.4 fL (7.4-10.4) 06/16/24 14:47 Neut % (Auto) 68.1 % 06/16/24 14:47 Lymph % (Auto) 21.7 % 06/16/24 14:47 Walker % (Auto) 6.1 % 06/16/24 14:47 Eos % (Auto) 3.0 % 06/16/24 14:47 Baso % (Auto) 0.5 % 06/16/24 14:47 Neut # (Auto) 9.03 10^3/uL (1.8-7.7) H 06/16/24 14:47 Lymph # (Auto) 2.9 10^3/uL (0.8-4.8) 06/16/24 14:47 Walker # (Auto) 0.8 10^3/uL (0.2-0.9) 06/16/24 14:47 Eos # (Auto) 0.4 10^3/uL (0.0-0.8) 06/16/24 14:47 Baso # (Auto) 0.1 10^3/uL (0.0-0.1) 06/16/24 14:47 Nucleated RBC % (auto) 0 % 06/16/24 14:47 Nucleated RBCs # 0.0 /100WBC 06/16/24 14:47 Sodium 135 mmol/L (136-145) L 06/16/24 14:47 Potassium 4.0 mmol/L (3.5-5.1) 06/16/24 14:47 Chloride 102 mmol/L (98-107) 06/16/24 14:47 Carbon Dioxide 23 mmol/L (22-29) 06/16/24 14:47 Anion Gap 14.0 (5-19) 06/16/24 14:47 BUN 13 mg/dL (6-20) 06/16/24 14:47 Creatinine 0.9 mg/dL (0.7-1.2) 06/16/24 14:47 GFR Calculation 90.1 mL/min (90-130) 06/16/24 14:47 Glucose 116 mg/dL (65-115) H 06/16/24 14:47 Calculated Osmolality 281 mOsm/kg (285-295) L 06/16/24 14:47 Calcium 8.6 mg/dL (8.5-10.5) 06/16/24 14:47 Total Bilirubin 0.2 mg/dL (0.15-1.2) 06/16/24 14:47 AST 18 U/L (0-40) 06/16/24 14:47 ALT 24 U/L (0-41) 06/16/24 14:47 Alkaline Phosphatase 95 U/L (40-130) 06/16/24 14:47 Total Protein 6.5 g/dL (6.6-8.7) L 06/16/24 14:47 Albumin 3.5 g/dL (3.5-5.2) 06/16/24 14:47 Globulin 3.0 g/dL (1.3-4.6) 06/16/24 14:47 Urine Color Yellow (Yellow) 06/16/24 14:25 Urine Appearance Slightly cloudy (CLEAR) 06/16/24 14:25 Urine pH 6 (5-7) 06/16/24 14:25 Ur Specific [facility] 1.020 (1.005-1.030) 06/16/24 14:25 Urine Protein Neg (Negative) 06/16/24 14:25 Urine Glucose (UA) Norm (Normal) 06/16/24 14: Urine Ketones Negative (Negative) 06/16/24 14: Urine Blood 2+ (Negative) A 06/16/24 14: Urine Nitrate Positive (Negative) A 06/16/24 14:25 Urine Bilirubin Neg (Negative) 06/16/24 14:25 Urine Urobilinogen Norm mg/dL (Negative) 06/16/24 14:25 Ur Leukocyte Esterase 1+ (Negative) A 06/16/24 14:25 Urine RBC 11-20 /hpf (0-2) H 06/16/24 14:25 Urine WBC 51-100 /hpf (0-5) H 06/16/24 14:25 Ur Squamous Epith Cells 0-5 /hpf (0-5) 06/16/24 14:25 Amorphous Sediment Not Reportable 06/16/24 14:25 Urine Bacteria 4+ /hpf (NONE) H 06/16/24 14:25 Hyaline Casts 1.65 /lpf 06/16/24 14:25 No radiology studies performed this visit Discharge Plan Discharge Patient Disposition: Home Clinical Impression: Complication of French catheter Qualifiers: Encounter type: initial encounter Qualified Code(s): T83.9XXA - Unspecified complication of genitourinary prosthetic device, implant and graft, initial encounter Condition: Stable Prescriptions: New ciprofloxacin HCl [Cipro] 500 mg tablet 500 mg PO Q12H Qty: 14 0RF No Action pantoprazole 40 mg tablet,delayed release (DR/EC) 40 mg PO DAILY Qty: 90 2RF metformin 500 mg tablet extended release 24 hr 500 mg PO DAILY Qty: 90 1RF citalopram 20 mg tablet 20 mg PO DAILY Qty: 90 1RF bupropion HCl 300 mg tablet extended release 24 hr 300 mg PO QAM Qty: 90 1RF lisinopril 5 mg tablet 5 mg PO BEDTIME Qty: 90 1RF (DME) French Catheter Legbag and tubing supplie See Rx Instructions .Route .MEDSUPPLY Qty: 1 5RF Rx Instructions: As directed tamsulosin 0.4 mg capsule 0.4 mg PO DAILY Qty: 30 0RF atorvastatin 20 mg tablet 20 mg PO QPM Discharge Orders: Discharge ED (Routine); Ordered 06/16/24 Ordered By: Kalee Porras Referrals: Maris Cavazos DO [Primary Care Provider, Family Practice] Activity Restrictions/Additional Instructions: Please follow-up with urology at your currently scheduled appointment tomorrow. Print Language: [place] Citizen Coding Level of Care Code ED Access Database Developer for Tolu Wayne
[2024-06-16 15:00] LABS: Basophils # 0.1 10^3/uL (0.0-0.1); Basophils % 0.5 %; Eosinophils # 0.4 10^3/uL (0.0-0.8); Hematocrit 46.9 % (37-53); Lymphocytes # 2.9 10^3/uL (0.8-4.8); Lymphocytes % 21.7 %; Mean Corpuscular HGB Conc 32.4 g/dL (30-55); Mean Corpuscular Hemoglobin 28.3 pg (27-33); Mean Corpuscular Volume 87.2 fl (82-101); Mean Platelet Volume 9.4 fL (7.4-10.4); Monocytes # 0.8 10^3/uL (0.2-0.9); Monocytes % 6.1 %; Neutrophils # 9.03 10^3/uL (1.8-7.7); Neutrophils % 68.1 %; Nucleated Red Blood Cells % 0 %; Platelet Count 236 10^3/cmm (157-399); Red Blood Count 5.38 10^6/uL (3.85-5.65); Red Cell Distribution Width 13.6 % (12.1-15.1); White Blood Count 13.26 10^3/uL (3.29-11.43)
[2024-06-16 15:19] LABS: Alanine Aminotransferase 24 U/L (0-41); Albumin Level 3.5 g/dL (3.5-5.2); Alkaline Phosphatase 95 U/L (40-130); Aspartate Amino Transferase 18 U/L (0-40); Blood Urea Nitrogen 13 mg/dL (6-20); Calcium 8.6 mg/dL (8.5-10.5); Carbon Dioxide 23 mmol/L (22-29); Chloride 102 mmol/L (98-107); Creatinine Clr Calc Pharmacy 152.4531; Glomerular Filtration Rate 90.1 mL/min (90-130); Glucose 116 mg/dL (65-115); Osmolality Calculated 281 mOsm/kg (285-295); Sodium 135 mmol/L (136-145); Total Bilirubin 0.2 mg/dL (0.15-1.2); Total Protein 6.5 g/dL (6.6-8.7)
[2024-06-16 16:19] VITALS: BP 109/85; PULSE 87; O2SAT 97
== END 2024-06-16 16:22 | disposition home or self-care (01) ==
PROVIDERS: Emergency Provider Physician Assistant; PCP Family Medicine
DX: T83.091A Other mechanical complication of indwelling urethral catheter, initial encounter (principal); Z79.84 Long term (current) use of oral hypoglycemic drugs; I10 Essential (primary) hypertension; E78.5 Hyperlipidemia, unspecified; X58.XXXA Exposure to other specified factors, initial encounter
CPT/HCPCS: 36415; 51798; 80053; 81001; 85025; 87086; 99283

== ENCOUNTER → 2024-07-15 16:14 | Outpatient (BNVA) | payer OTHER, SELFPAY | PROVIDERS: PCP Family Medicine; Visit Provider Internal Medicine | DX: R07.9 Chest pain, unspecified (principal); R60.0 Localized edema; R06.02 Shortness of breath | CPT/HCPCS: 36415; 80048; 83880 ==

== ENCOUNTER 2024-07-31 06:49 | Outpatient (CLI) | payer OTHER, SELFPAY ==
--- NOTE | 2024-07-31 | ECG_ITS ---
Ufree Test Date: 2024-07-31 Pat Name: Sravan Gipson Department: Room: Gender: Male Inclusion Intern: : 1975 Requested By: Armando Walker Order Number: [id number] Ayo MD: Bonny Ding M.D. Interpretive Statements PROCEDURE: At the baseline, the EKG revealed normal sinus rhythm with a normal ST Ts.. The baseline heart was 60 to bpm with a blood pressue of 135/82 mm of Hg Lexiscan was infused over a period of 20 seconds. A total of 0.4 milligrams of Lexiscan was infused. The stress phase was continued for a total of 5 minutes. Heart rate at the end of the stress phase was 81 bpm with a blood pressure 110/71 mm of Hg. The EKG at the peak infusion revealed no significant changes. Sestamibi was injected 20 seconds after the Lexiscan infusion. Heart rate at the end of the recovery phase was 79 bpm with a blood pressure of 115/72 mm of Hg. CONCLUSION: 1. No significant EKG changes with the LexiScan infusion 2. No LexiScan induced chest pain or cardiac arrhythmia 3. Normal blood pressure and heart rate response 4. Sestamibi/sestamibi perfusion scan pending; see separate report. Electronically Signed On 08-03-2024 21:42:56 CDT by Bonny Ding M.D. [email or web address]
--- NOTE | 2024-07-31 06:56 | NMCV_ITS ---
NM [place] perf SPECT r/s* [id number] Sravan Gipson Age: 49 Gender: M : 1975 Exam Date: 07/31/2024 08:29 Ordering Phys: Armando Walker M.D ([email or web address]) Technologist: DIEGO Diaz Exam Location: [facility] Indications: cp STRESS TEST Please [facility] IMAGE PROTOCOL Rest/Stress 1 Lexiscan Day Radiopharmaceutical Dose (mCi) Administration Site Administered by Rest: Tc-99m 10.8 IV DIEGO Diaz Sestamibi Stress:Tc-99m 33 IV DIEGO Caruso Sestamibi Rest: 31-Jul-2024 60 Discovery 630 Stress: 31-Jul-2024 30 Discovery 630 0.4mg Lexiscan. Images obtained in supine and prone position. SPECT RESULTS Technical Quality: Good Raw Data Analysis: Normal Image Corrections: No attenuation or motion correction applied Summed Stress Score: 7 Summed Rest Score: 2 Summed Difference Score: 5 PERFUSION FINDINGS Moderate area of moderately decreased tracer uptake involving the mid and apical inferior, mid inferolateral and apical lateral segments. Significant reversibility was noted in the inferior and apical lateral segments. FUNCTIONAL RESULTS (calculated via Gated SPECT) Stress Image LV EF (%): 63 Stress EDV (mL):124 TID: 1.16 Stress ESV (mL):46 FUNCTIONAL FINDINGS: Segmental wall motion analysis revealing no gross wall motion abnormalities. The transient ischemic dilatation ratio was slightly elevated to 1.16 IMPRESSIONS 1. Myocardial perfusion imaging revealing moderate area of moderate decrease tracer uptake involving the mid and apical inferior, mid inferolateral and apical lateral segments with significant reversibility in the inferior and apical lateral regions suggesting myocardial scarring with ischemia in the distribution of the right coronary artery/circumflex artery 2. Normal LV ejection fraction of 63% . 3. LV wall motion analysis revealing no gross wall motion abnormalities. 4. LV volume, upper limit of normal Compared to the study from 01/09/2023, the ischemia appears to be new Dr Bonny Ding MD [facility] (Electronically Signed) Final Date: 31 July 2024 13:54 S
[2024-07-31 07:15] VITALS: BMI 43.7
[2024-07-31 09:10] VITALS: BP 110/74; PULSE 83
== END 2024-07-31 06:50 | disposition home or self-care (01) ==
LOC: CDL 06:52
PROVIDERS: PCP Family Medicine; Visit Provider Internal Medicine
DX: R07.9 Chest pain, unspecified (principal); R06.02 Shortness of breath; R93.1 Abnormal findings on diagnostic imaging of heart and coronary circulation
CPT/HCPCS: 36415; 78452; 93017; 96374; A9500

== ENCOUNTER → 2024-08-12 09:24 | Day surgery (SDC) | payer OTHER, SELFPAY ==
[2024-08-12 09:35] VITALS: BMI 41.1
[2024-08-12 09:49] VITALS: BP 148/98; PULSE 92; RESP 18; TEMP 36.7; O2SAT 93
--- NOTE | 2024-08-12 10:20 | ANES.PREANE2 ---
Pre-Anesthetic Assessment Height/Weight: Height 1.88 m Weight 145.15 kg Temp Pulse Resp BP Pulse Ox O2 Del Method 98.0 F 92 18 148/98 93 Room Air 08/12/24 09:49 08/12/24 09:49 08/12/24 09:49 08/12/24 09:49 08/12/24 09:49 08/12/24 09:49 Preop Diagnosis: screening Operation Date: 08/12/24 11:00 Proposed Procedures p Colonoscopy 11801 G0121 Z12.11(Not Applicable) - Ace Dumont MD Familial anesthetic complications: none Was Beta Gustavo taken within 24 hours: Yes Was Clonidine taken within 24 hours: N/A Last intake: Intake Last Liquid Date 08/10/24 Last Liquid Time 22:00 Last Solid Date 08/10/24 Social No tobacco (chews- last time last night) MJ gummy Every once in a while Exam alert and oriented x 3 Airway Submandibular: within normal limits Cervical ROM: within normal limits Mallampati: Class IV Dentition: full Pulmonary Asthma (no inhaler use) CV/HEM Hypertension CP episodes, failed stress test. angiogram scheduled for 08/14. called Dr. Rebollar for cardiac clearance. Per Dr. Rebollar pt is to get angiogram before screening colonoscopy. This CHIPPER OPERATOR relayed message to pt. and cancelled todays screening colonoscopy. None reported Hepatic None reported GI Gastroesophageal Reflux Disease Metabolic Diabetes Mellitus, Hyperlipidemia and Morbid Obesity [facility] None reported Neuropsych Anxiety and Depression Anesthetic Plan ASA status: 3 Risk of > 500 ml blood loss (7ml/kg in children): No Other Pertinent Information colonoscopy cancelled due to scheduled cardiac angiogram on 08/14. screening colonoscopy to be rescheduled after cath procedure per Dr. Rebollar, Cardiology. Medications/Allergies Home Medications ?Medication ?Instructions ?Recorded ?Confirmed ?Last Taken ?Type bupropion HCl 300 mg 24 hr tablet, 300 mg PO QAM #90 tabs 05/16/24 08/12/24 08/07/24 Rx extended release citalopram 20 mg tablet 20 mg PO DAILY #90 tabs 05/16/24 08/12/24 08/11/24 Rx lisinopril 5 mg tablet 5 mg PO BEDTIME #90 tabs 05/16/24 08/12/24 08/11/24 Rx Kevin Catheter Legbag and tubing #1 ea 04/10/25 07/01/25 Unknown Rx supplie tamsulosin 0.4 mg capsule 0.4 mg PO DAILY #30 caps 05/22/24 08/12/24 08/11/24 Rx atorvastatin 20 mg tablet 20 mg PO QPM #90 tabs 07/17/24 08/12/24 08/11/24 Rx finasteride 5 mg tablet 5 mg PO DAILY 07/17/24 08/12/24 08/11/24 History metformin 500 mg tablet,extended 500 mg PO DAILY #90 tabs 07/17/24 08/12/24 08/10/24 Rx release 24 hr propranolol 20 mg tablet 20 mg PO BID #180 tabs 07/17/24 08/12/24 08/11/24 Rx furosemide 20 mg tablet (Lasix) 20 mg PO DAILY #90 tabs 07/18/24 08/12/24 08/11/24 Rx pantoprazole 40 mg tablet,delayed 40 mg PO DAILY #90 tabs 07/28/24 08/12/24 08/11/24 Rx release Allergies Allergy/AdvReac Type Severity Reaction Status Date / Time No Known Allergies Allergy Verified 08/12/24 09:35 Current Medications Generic Name Dose Route Start Last Admin Trade Name Freq PRN Reason Stop Dose Admin Sodium Chloride 1,000 mls @ 15 mls/hr 08/12/24 09:29 08/12/24 09:46 Sodium Chloride 0.9% IV 08/13/24 09:28 15 mls/hr .Q24H PRN Administration COLONOSCOPY FLUIDS PFSH Anesthesia Medical History Coarse tremors Prediabetes Rectus diastasis Obesity (BMI 30-39.9) ILA (generalized anxiety disorder) Obstructive sleep apnea Nicotine dependence, chewing tobacco, with unspecified nicotine-induced disorders 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 Prado History of umbilical hernia repair (09/24/20) History of repair of ACL replacement- 2017 History of appendectomy open Hx laparoscopic cholecystectomy Family History Grandmother Myocardial infarction Grandfather Myocardial infarction Other CAD (coronary artery disease) Diabetes Social History Smoking and tobacco/nicotine status: current every day tobacco/nicotine user (chew) cigarettes and smokeless tobacco Smokeless tobacco user: chewing tobacco Smokeless tobacco details: 2 cans per week and some ciggarette smoking Second hand smoke exposure: Yes Alcohol intake: current Alcohol intake frequency: holidays/special occasions only Substance/Drug Use: never Lives independently: Yes Household members: spouse Marital status: Current occupational status: employed Current occupation: [employer] Current occupational exposures/hazards: Yes Do you think of yourself as: Straight/Heterosexual Current gender identity: Male Data Anesthesia Cardiac Studies: Echocardiogram 12/27/22 Echocardiogram Ultrasound 09/17/19 Sestamibi Stress Test (Cardiology) 07/31/24
--- NOTE | 2024-08-12 10:20 | PC.NURSE ---
Patient canceled by anesthesia due to having a cardiac petroleum laboratory technician procedure on . After anesthesia called Dr. Rebollar and he reviewed the echo he thinks that is best to cancel the procedure.
== END ==
LOC: GILAB 09:25
PROVIDERS: PCP Family Medicine; Visit Provider Student in an Organized Health Care Education/Training Program
PROC: 0DJD8ZZ Inspection of Lower Intestinal Tract, Via Natural or Artificial Opening Endoscopic (ICD-10-PCS; CPT 45378; principal; 2024-08-12 11:00)
DX: Z12.11 Encounter for screening for malignant neoplasm of colon (principal); Z53.8 Procedure and treatment not carried out for other reasons; I10 Essential (primary) hypertension; J45.909 Unspecified asthma, uncomplicated; K21.9 Gastro-esophageal reflux disease without esophagitis; E11.9 Type 2 diabetes mellitus without complications; R94.39 Abnormal result of other cardiovascular function study; E78.5 Hyperlipidemia, unspecified; E66.01 Morbid (severe) obesity due to excess calories; F17.220 Nicotine dependence, chewing tobacco, uncomplicated; Z68.41 Body mass index [BMI] 40.0-44.9, adult; Z79.899 Other long term (current) drug therapy; Z79.84 Long term (current) use of oral hypoglycemic drugs; G47.33 Obstructive sleep apnea (adult) (pediatric)
CPT/HCPCS: 36416; 82962; J7030

== ENCOUNTER 2024-08-14 08:43 | Outpatient (CLI) | payer OTHER, SELFPAY ==
[2024-08-14] VITALS (21 sets, daily range): BP systolic 93–132; BP diastolic 62–83; PULSE 67–97; RESP 17–22; TEMP 36.5; O2SAT 93–95; BMI 43.7
--- NOTE | 2024-08-14 09:00 | XACV_ITS ---
Exam Room: 2 Ht: 188 cm Wt: 155 kg BSA: 2.91 m2 Gender: Male : 1975 Any Known Allergies: No known allergies Exam Priority: Routine Procedure(s): Procedure Description: Diagnostic procedure Procedure Description: Left Heart Catheterization Procedure Description: Left ventriculography Procedure Description: Coronary Angiography Diagnostic Cath Status: Elective Diagnostic Findings * INDICATION: Chest pain/abnormal stress test. * Circumflex has no significant disease. * Right Coronary Artery has no significant disease. * Distal Left Anterior Descending: Diffuse severe disease, PATRIA: 2 flow. * Left Main has no disease. * Coronary angiography shows left dominance. Conclusions 1. Distal to apical LAD has diffuse severe disease. Not amenable to intervention. Medical therapy.. 2. Normal left ventricular systolic function. Ejection fraction of 60%. Recommendations * Aggressive medical therapy for coronary artery disease. * Outpatient cardiology follow up in 2 weeks. Interventional RX Recommendation: medical therapy and/or counseling Diagnostic RX Recommendation: medical therapy and/or counseling Anticoagulation: Heparin Ventriculography Ejection Fraction: 60.0 % Pressures Phase:Rest AO : 115 / 79 ( 92 ) @ 11:48:00 AM LV : 146 / 3 / 22 @ 11:47:00 AM 146 / -5 / 18 @ 11:48:00 AM 146 / 0 / 18 @ 11:48:00 AM Valves Phase:DefaultPhase AV : 31.0 @ 10:54:24 AM AV Mean Gradient: 21.0 @ 10:54:24 AM Clinical Evaluation EBL: 5mL-10mL Procedural Details Procedure Consent Obtained. Admit Source: Out Patient. Pre-Procedure Time Out. Identified patient by full name and date of as verbalized by the patient/guarantor. Does the consent match the physician's order: Yes. Accurate & Complete Informed Consent: Yes. Inpatient/Outpatient History & Physical on Chart: Yes. If H&P is completed, is and addenduem needed: No; If yes, is the addendum complete: N/A. Visualize and Verify Site with Patient/Guarantor: N/A. Relevant Radiology Images available: Yes. The risks, benefits, and alternatives of sedation and/or procedure were discussed by physician. The patient agrees to continue. Procedure started. [facility] Clinical Fraility Score: 3: Managing Well. Foot Press Operator Indications: Worsening Angina. Chest Pain Symptom Assessment: Typical Angina Symptoms. Correct patient, site and procedure confirmed by cath team. Current diagnosis: Chest Pain, Abnormal stress test. PERRLA. Strong, equal hand knife operator bilaterally. Lungs clear x 5 lobes. IV Site on Arrival: 20 gauge in the right anticubital. IV Fluids: 0.9% NaCl at KVO. 0 mL infused prior to director of labor relations. Pre Procedural Pulses: bilateral radial was 3+. Pre Procedural Pulses: bilateral posterior tibial was 3+. Pre Procedural Pulses: bilateral dorsalis pedis was 3+. Oxygen started at 2liters/min via nasal canula. right radial was prepped with chloroprep then draped in the usual sterile fashion. right groin was prepped with chloroprep then draped in the usual sterile fashion. Physician notified. Baseline sample Acquired. HR: 72 BPM. Physician arrived. Physician scrubbed in. Immediate Pre-Procedure Time Out. Correct Patient: Yes; Correct Procedure: Yes; Correct Site: Yes; Correct Patient Position: Yes; Correct Supplies: Yes; Dried Flammable Prep: Yes; Blood Products Available: No;. Lidocaine 1% infiltrated to the right radial. Arterial access obtained. A 5 senegalese TIG catheter in over wire. Multiple views taken of left coronary artery. Multiple views taken of left coronary artery. Catheter redirected to the RCA. Catheter removed over the exchange wire. A 5 senegalese JR4 catheter in over wire. Catheter removed over the exchange wire. A 5 senegalese 3DRC catheter in over wire. Catheter removed over the exchange wire. A 5 senegalese AL1 catheter in over wire. View taken of RCA. Catheter removed over the exchange wire. A 5 senegalese Angled Pig catheter in over wire. EDP Sample taken: LV 146/3,22; HR: 81 BPM; SpO2: 95%. LV gram performed in ALEXANDER @ 10 mL/second for a total of 30 mL. Catheter removed over the exchange wire. EDP Sample taken: LV 146/-6,18; HR: 82 BPM; SpO2: 96%. Pullback taken: LV 146/-1,18; AO 115/79(92); Mean: 21mmHg, Peak to Peak: 31mmHg, SEP: 10sec/min; HR: 82 BPM; SpO2: 96%. A TR Band was successful obtaining hemostatsis at the Right Radial artery insertion site. Physician scrubbed out. Post Procedure: Pulses reassessed and unchanged. PERRLA. Strong, equal hand knife operator bilaterally. No VTE prophylaxis required. Medication's Wasted: Lidocaine 1% = 18 mL. Medication's Wasted: Nitro = 49.6 mg. Medication's Wasted: Heparin = 1000 units. Medication's Wasted: Other = Fentanyl 50 cmg. Total IV fluids: 50 mL. Post-op diagnosis: Non-obstructive CAD. Complications: None. Estimated blood loss: 5mL-10mL. Responsiveness - Normal response to verbal stimuli; alert and oriented, PERRLA. Airway - Unaffected, no intervention required; spontaneous ventilation. Circulation: W/N/L, pulses unchanged. Nausea/Vomiting: No. Procedure completed. Patient transferred by wheelchair to CPRU. Vital chart was stopped. Access Site Site: Right Radial artery Sheath Size: 6 Fr Hemostasis Method: TR Band Hemostasis Success: Successful Procedure Medications Start: 10:15 AM Stop: 10:15 AM Medication: Versed Amount: 2 mg Route: I.V. Start: 10:19 AM Stop: 10:19 AM Medication: Fentanyl Amount: 50 mcg Route: I.V. Start: 10:27 AM Stop: 10:27 AM Medication: Heparin Amount: 5000 units Route: I.V. Start: 10:30 AM Stop: 10:30 AM Medication: Nitrogylcerin Amount: 200 mcg Route: I.C. Start: 10:25 AM Stop: : AM Medication: Nitrogylcerin Amount: 200 mcg Route: I.A. I, the attending physician, have reviewed and verified all procedure medications. Yes, all medications given per verbal order History/Risk Factors Hypertension: Yes Dyslipidemia: Yes Peripheral Arterial Disease (PAD): No Myocardial Infarction ([place]): No Obesity: Yes Renal Disease: No Tobacco Use: Current/Recent(w/in 1 year) Prior Interventions PCI: No CABG: No Valve Surgery: No Report Signatures Finalized by Armando Walker MD on 08/25/2024 11:32 AM
[2024-08-14 09:11] LABS: Hematocrit 48.8 % (37-53); Hemoglobin 16.00 g/dL (11.27-16.99); Mean Corpuscular HGB Conc 32.8 g/dL (30-55); Mean Corpuscular Hemoglobin 28.5 pg (27-33); Mean Corpuscular Volume 87.0 fl (82-101); Nucleated Red Blood Cells % 0 %; Platelet Count 253 10^3/cmm (157-399); Red Blood Count 5.61 10^6/uL (3.85-5.65); White Blood Count 10.41 10^3/uL (3.29-11.43)
[2024-08-14 09:31] LABS: Anion Gap 15.6 (5-19); Blood Urea Nitrogen 18 mg/dL (6-20); Calcium 9.0 mg/dL (8.5-10.5); Carbon Dioxide 23 mmol/L (22-29); Chloride 102 mmol/L (98-107); Creatinine Clr Calc Pharmacy 140.5318; Glucose 112 mg/dL (65-115); Osmolality Calculated 285 mOsm/kg (285-295); Potassium 4.6 mmol/L (3.5-5.1); Sodium 136 mmol/L (136-145)
--- NOTE | 2024-08-14 10:10 | W.PM.OPSFHP ---
Same Day Surgery H&P Indication for Procedure/HPI DATE OF PROCEDURE: August 14, 2024 CHIEF COMPLAINT/INDICATIONFOR SURGICAL PROCEDURE: Chest pain/ abnormal stress test PREOP DIAGNOSIS: Chest pain/abnormal stress test PLANNED PROCEDURE: Operation Date: 08/14/24 10:00 Proposed Procedures p Cardiac Catheterization - C w/w/o LV & coros(Left) - Armando Walker M.D Possible percutaneous coronary intervention 49-year-old man with past medical history of hyperlipidemia, hypertension, and diabetes who has been having on and off chest discomfort and dyspnea on exertion. Stress test was abnormal. Plan for coronary angiogram with possible PCI. Risks and benefits of procedure were discussed. Medications/Allergies* Home Medications ?Medication ?Instructions ?Recorded ?Confirmed ?Type finasteride 5 mg tablet 5 mg PO DAILY 07/17/24 08/14/24 History Allergies/Adverse Reactions Allergy/AdvReac Type Severity Reaction Status Date / Time No Known Allergies Allergy Verified 08/12/24 09:35 Current Medications: Generic Name Dose Route Start Last Admin Trade Name Freq PRN Reason Stop Dose Admin Sodium Chloride 1,000 mls @ 50 mls/hr 08/14/24 09:00 08/14/24 09:29 Sodium Chloride 0.9% IV 08/15/24 04:59 Not Given .Q20H ONE Pertinent History/Comorbid Conditions* Medical History (Updated 07/17/24 @ 08:29 by Maris Cavazos DO) Coarse tremors Prediabetes Rectus diastasis Obesity (BMI 30-39.9) ILA (generalized anxiety disorder) Obstructive sleep apnea Nicotine dependence, chewing tobacco, with unspecified nicotine-induced disorders Low testosterone level in male GERD (gastroesophageal reflux disease) Carpal tunnel syndrome, right Fracture of fifth metacarpal bone of right hand Asthma Benign essential HTN Dyslipidemia Surgical History (Updated 05/16/24 @ 08:10 by Maris Cavazos DO) History of esophagogastroduodenoscopy (EGD) Dr. Prado History of umbilical hernia repair (09/24/20) History of repair of ACL replacement- 2017 History of appendectomy open Hx laparoscopic cholecystectomy Family History (Updated 09/25/22 @ 10:08 by Felisha Padilla RN) Diabetes CAD (coronary artery disease) Myocardial infarction Grandmother Grandfather Social History Smoking and tobacco/nicotine status: current every day tobacco/nicotine user (chew) cigarettes and smokeless tobacco Smokeless tobacco user: chewing tobacco Smokeless tobacco details: 2 cans per week and some ciggarette smoking Second hand smoke exposure: Yes Alcohol intake: current Alcohol intake frequency: holidays/special occasions only Substance/Drug Use: never Lives independently: Yes Household members: spouse Marital status: Current occupational status: employed Current occupation: [employer] Current occupational exposures/hazards: Yes Do you think of yourself as: Straight/Heterosexual Current gender identity: Male Pertinent Exam Findings alert, oriented x 3, clear to auscultation bilaterally and regular rate & rhythm Conscious Sedation Assessment PATIENT ASSESSED PRIOR TO SEDATION, WITH NO CHANGE NOTED: Yes AIRWAY EVAL/ANESTHESIA PLAN: normal airway, ASA III, Local Anesthesia, Risks, benefits & alternatives of sedation and/or procedure discussed and Patient agrees to continue as planned ADDITIONAL INFORMATION: Moderate sedation Recommendations Risks and benefits of procedure reviewed and Patient/family agree to proceed Surgery/Procedure today (Left heart cath with possible percutaneous coronary intervention) Coding Level of Care Code Acute Code for Tolu Wayne
--- NOTE | 2024-08-14 10:56 | PM.PROC ---
Procedure Note: Date of procedure: 08/14/24 Pre-procedure diagnosis: Chest pain/abnormal stress test Post-procedure diagnosis: other (None obstructive coronary artery disease) Procedure: Left main artery is patent. LAD has distal vessel slow flow and diffuse disease. Circumflex artery is patent. Nondominant RCA is patent. Aggressive risk factor modification Performing Provider: Armando Walker Complications: None Condition: stable Disposition: same day Coding Level of Care Code Acute Code for Tolu Wayne
== END 2024-08-14 14:06 | disposition home or self-care (01) ==
PROVIDERS: PCP Family Medicine; Visit Provider Internal Medicine
DX: R07.9 Chest pain, unspecified (principal); R94.39 Abnormal result of other cardiovascular function study; I10 Essential (primary) hypertension; E78.5 Hyperlipidemia, unspecified; E66.9 Obesity, unspecified; Z68.41 Body mass index [BMI] 40.0-44.9, adult; F17.220 Nicotine dependence, chewing tobacco, uncomplicated; F17.210 Nicotine dependence, cigarettes, uncomplicated; R73.03 Prediabetes; F41.9 Anxiety disorder, unspecified; G47.33 Obstructive sleep apnea (adult) (pediatric); K21.9 Gastro-esophageal reflux disease without esophagitis; J45.909 Unspecified asthma, uncomplicated; Z82.49 Family history of ischemic heart disease and other diseases of the circulatory system
CPT/HCPCS: 36415; 80048; 85025; 93458; 96365; 99152; 99153; C1769; C1887; C1894; J1644; J2250; J3010; J3490; J7030; J9999; Q0163; Q9967

== ENCOUNTER → 2024-11-13 08:06 | Outpatient (BNVA) | payer OTHER, SELFPAY | PROVIDERS: PCP Family Medicine; Visit Provider Family Medicine | DX: R73.03 Prediabetes (principal) | CPT/HCPCS: 80048; 83036 ==

== ENCOUNTER → 2025-02-10 09:51 | Outpatient (BNVA) | payer OTHER, SELFPAY | PROVIDERS: PCP Family Medicine; Visit Provider Family Medicine | DX: R60.0 Localized edema (principal); R53.83 Other fatigue; R35.1 Nocturia | CPT/HCPCS: 80048; 84153; 84403; 85025 ==